=== PATIENT | male | born 1955 | race Caucasian/White ===

== ENCOUNTER 2017-12-14 11:52 | Inpatient (IN) | payer MEDICARE ==
[~2017-12-14] VITALS: Ht 180.3 cm; Wt 132.7 kg
[~2017-12-14 11:52] MED LIST: ALPR0.5T8 PO; APIX5TAB PO; ASEN5TAB8 SL; DULO60CA63 PO; FLUT16H NASAL; FURO20TA6 PO; HYDR8TAB18 PO; METO25TA6 PO; MONT10TA24 PO; TAMS0.4C32 PO; TOPI100T37 PO; ZOLP5TAB8 PO
[2017-12-14 12:17] LABS: BASOPHILS % (AUTO) 0.9 % (0.0-5.0); EOSINOPHILS % (AUTO) 2.3 % (0.0-8.0); HEMATOCRIT 37.7 % (42-54); LYMPHOCYTES % (AUTO) 21.4 % (21.0-51.0); MEAN CORPUSCULAR HEMOGLOBIN 31.6 pg (27.0-33.0); MEAN CORPUSCULAR VOLUME 92.9 fL (79-99); MONOCYTES % (AUTO) 8.4 % (3.0-13.0); NUCLEATED RED BLOOD CELLS 0.1 % (0.0-0.19); PLATELET COUNT (AUTO) 300 K/uL (130-400); RED BLOOD CELL COUNT(AUTO) 4.06 MIL/uL (4.50-6.20); RED CELL DISTRIBUTION WIDTH 12.7 % (11.0-15.5)
[2017-12-14 12:36] LABS: POTASSIUM 4.2 mmol/L (3.5-5.1)
[2017-12-14 12:43] LABS: ALBUMIN 3.6 g/dL (3.5-5.0); BILIRUBIN,TOTAL 0.4 mg/dL (0.2-1.0); TOTAL PROTEIN, SERUM 7.6 g/dL (6.0-8.3)
[2017-12-14 13:08] LABS: INR 0.89 (0.85-1.15); PARTIAL THROMBOPLASTIN TIME 25.7 SEC (26.3-35.5); PROTHROMBIN TIME 9.4 SEC (9.6-11.6)
[2017-12-14] MEDS ORDERED: ALPRAZOLAM 0.5 MG TABLET PO PRN (15:30)
[2017-12-14] MEDS ORDERED: HYDROMORPHONE HCL 2 MG TAB PO PRN (15:30)
[2017-12-14] MEDS ORDERED: FLUTICASONE PROPIONATE 50MCG/SPRAY 16 GM BOTTLE EN PRN (15:45)
[2017-12-14] MEDS ORDERED: LACTULOSE 20 GM/30 ML UDCUP PO PRN (15:45)
[2017-12-14] MEDS ORDERED: CYCLOBENZAPRINE HCL 10 MG TABLET PO PRN (15:45)
[2017-12-14 17:07] VITALS: BP 110/61
[2017-12-14 19:45] VITALS: BP 114/83
[2017-12-14 20:30] VITALS: BP_SYST 100; BP_SYST 125; BP_SYST 133; BP_DIAS 63; BP_DIAS 75; BP_DIAS 78
[2017-12-14] MEDS ORDERED: MONTELUKAST SODIUM 10 MG TAB PO SCH (21:00)
[2017-12-14] MEDS: DULOXETINE HCL 30 MG CAP PO SCH (21:30)
[2017-12-14] MEDS: TOPIRAMATE 100 MG TAB PO SCH (22:41)
[2017-12-14 23:27] VITALS: BP 126/76
[2017-12-15 04:16] VITALS: BP 124/75
[2017-12-15 04:47] LABS: HEMATOCRIT 35.5 % (42-54); MEAN CORPUSCULAR HEMOGLOBIN 32.3 pg (27.0-33.0); MEAN CORPUSCULAR HGB CONC 34.9 g/dL (32.0-36.0); MEAN CORPUSCULAR VOLUME 92.5 fL (79-99); NUCLEATED RED BLOOD CELLS 0.1 % (0.0-0.19); PLATELET COUNT (AUTO) 305 K/uL (130-400); RED BLOOD CELL COUNT(AUTO) 3.83 MIL/uL (4.50-6.20); RED CELL DISTRIBUTION WIDTH 12.6 % (11.0-15.5); WHITE BLOOD COUNT (AUTO) 7.9 K/uL (4.8-10.8)
[2017-12-15 05:01] LABS: ALBUMIN 3.2 g/dL (3.5-5.0); BILIRUBIN,TOTAL 0.4 mg/dL (0.2-1.0); CREATININE 0.8 mg/dL (0.5-1.5); POTASSIUM 4.4 mmol/L (3.5-5.1); TOTAL PROTEIN, SERUM 6.7 g/dL (6.0-8.3)
[2017-12-15] MEDS ORDERED: CYTOMEL PO SCH (06:30)
[2017-12-15 08:00] VITALS: BP 121/70
[2017-12-15] MEDS ORDERED: ENALAPRIL MALEATE 10 MG TABLET PO SCH (09:00)
[2017-12-15] MEDS ORDERED: TAMSULOSIN HCL 0.4 MG CAP.ER.24H PO SCH (09:00)
[2017-12-15] MEDS ORDERED: FE FUMARATE/FA/MV, MIN COMB#15 1 TAB PO SCH (09:00)
[2017-12-15] MEDS ORDERED: TESTOSTERONE CYPIONATE 200 MG/ML PO SCH (09:00)
[2017-12-15] MEDS: TOPIRAMATE 100 MG TAB PO SCH (10:36)
[2017-12-15] MEDS: DULOXETINE HCL 30 MG CAP PO SCH (10:37)
[2017-12-15 12:00] VITALS: BP 158/90
== END 2017-12-15 14:16 | disposition home or self-care (01) | DRG 312 ==
LOC: EDH 11:52 → EDHIP 14:07 → 4BH 16:31
PROVIDERS: ADMIT Internal Medicine; ATTEND Internal Medicine
DX: I95.1 Orthostatic hypotension (principal); E66.01 Morbid (severe) obesity due to excess calories; I48.3 Typical atrial flutter; Z68.41 Body mass index [BMI] 40.0-44.9, adult; F31.9 Bipolar disorder, unspecified; G47.33 Obstructive sleep apnea (adult) (pediatric); I10 Essential (primary) hypertension; Z98.84 Bariatric surgery status
CPT/HCPCS: 36415; 71045; 80053; 82550; 83880; 84484; 85025; 85027; 85610; 85730; 93005

== ENCOUNTER 2019-12-01 08:52 | Observation (INO) | payer MEDICARE ==
[2019-11-27 09:57] VITALS: BP 143/86
[2019-11-27 14:58] VITALS: BP 143/86
[2019-11-27 15:00] LABS: BASOPHILS % (AUTO) 0.7 % (0.0-5.0); EOSINOPHILS % (AUTO) 1.2 % (0.0-8.0); HEMATOCRIT 48.6 % (42-54); LYMPHOCYTES % (AUTO) 30.1 % (21.0-51.0); MEAN CORPUSCULAR HEMOGLOBIN 29.7 pg (27.0-33.0); MEAN CORPUSCULAR HGB CONC 31.7 g/dL (32.0-36.0); MEAN CORPUSCULAR VOLUME 93.6 fL (79-99); MONOCYTES % (AUTO) 9.3 % (3.0-13.0); NEUTROPHILS % (AUTO) 58.4 % (40.0-77.0); PLATELET COUNT (AUTO) 254 K/uL (130-400); RED BLOOD CELL COUNT(AUTO) 5.19 MIL/uL (4.50-6.20); RED CELL DISTRIBUTION WIDTH 13.2 % (11.0-15.5); WHITE BLOOD COUNT (AUTO) 7.7 K/uL (4.8-10.8)
[2019-11-27 15:14] LABS: INR 0.92 (0.85-1.15); PARTIAL THROMBOPLASTIN TIME 29.5 SEC (26.3-35.5)
[2019-11-27 15:16] LABS: ALBUMIN 3.7 g/dL (3.5-5.0); BILIRUBIN,TOTAL 0.6 mg/dL (0.2-1.0); POTASSIUM 3.8 mmol/L (3.5-5.1); TOTAL PROTEIN, SERUM 7.9 g/dL (6.0-8.3)
[2019-11-28] MEDS: CEFAZOLIN SODIUM 1 GM VIAL IVP SCH (08:00)
[2019-11-29] MEDS: CEFAZOLIN SODIUM 1 GM VIAL IVP SCH (08:00)
[2019-12-01] VITALS (15 sets, daily range): BP systolic 118–154; BP diastolic 53–97
[~2019-12-01] VITALS: Ht 177.8 cm; Wt 141.7 kg
[~2019-12-01 08:52] MED LIST changes: +ANAS1TAB49 PO; -APIX5TAB PO; -ASEN5TAB8 SL; -DULO60CA63 PO; -FLUT16H NASAL; -FURO20TA6 PO; +LACT10SO32 PO; +LAMO100T16 PO; +LIOT5TAB11 PO; -METO25TA6 PO; -MONT10TA24 PO; +MONT10TA26 PO; +NALO25TA PO; +SODIUM CHLORIDE 0.9% 1000ML 1,000 ML IV SCH; +TESTOSTERONE IJ; +ZOLP5TAB2 PO; -ZOLP5TAB8 PO
--- NOTE | 2019-12-01 09:10 | NUR ---
pre op pt here for rt breast mastectomy. pt has a quarter size lump to rt breast with swelling to rt axilla.
[2019-12-01] MEDS ORDERED: LACTATED RINGERS 1000ML 1,000 ML IV ONE (09:12)
[2019-12-01] MEDS ORDERED: LIDOCAINE PF 2% 5ML ABBOJECT ONE (10:58)
[2019-12-01] MEDS ORDERED: GLYCOPYRROLATE 1 MG/5 ML SYRINGE ONE (10:59)
[2019-12-01] MEDS ORDERED: ONDANSETRON HCL 4 MG/2 ML VIAL ONE ×2 (10:59→11:06)
[2019-12-01] MEDS ORDERED: DEXAMETHASONE SOD PHOSPHATE 10MG/ML 1ML VIAL ONE (10:59)
[2019-12-01] MEDS ORDERED: NEOSTIGMINE 5MG/5ML SYR IV ONE (10:59)
[2019-12-01] MEDS ORDERED: PROPOFOL 10 MG/ML 20ML VIAL IV ONE (10:59)
[2019-12-01] MEDS ORDERED: FENTANYL CITRATE PF 50 MCG/1 ML 2ML VIAL ONE (11:00)
[2019-12-01] MEDS ORDERED: ROCURONIUM 10MG/1ML SYR 10 MG/ML ML ONE (11:00)
[2019-12-01] MEDS ORDERED: MIDAZOLAM HCL 1 MG/ML 2ML VIAL ONE (11:00)
[2019-12-01] MEDS ORDERED: KETAMINE 50MG/ML SYRINGE 50 MG/ML DISP.SYRIN IV ONE (11:42)
[2019-12-01] MEDS ORDERED: FENTANYL CITRATE PF 50 MCG/1 ML 5ML AMP IV ONE (12:34)
[2019-12-01] MEDS ORDERED: BUPIVACAINE/PF 0.5% 30ML VIAL ONE (13:10)
[2019-12-01] MEDS ORDERED: MEPERIDINE-PF 25 MG/ML SYG ONE (14:20)
[2019-12-01] MEDS: CEFAZOLIN SODIUM 1 GM VIAL IVP SCH (14:29)
[2019-12-01] MEDS ORDERED: MEPERIDINE-PF 50 MG/ML SYG ONE (14:44)
[2019-12-01] MEDS ORDERED: HYDROMORPHONE HCL 8 MG PO PRN (16:15)
[2019-12-01] MEDS ORDERED: PHARMACY COMMUNICATION MISC SCH (16:45)
--- NOTE | 2019-12-01 16:50 | NUR ---
INITIAL Met with patient s/p mastectomy- order for HH for dressing changes. Patient lives with spouse, uses a cance, drives, is indpendent, home safe and accesible, has a shower chair and hand held shower. Spouse rashmi Laboy at [phone] to provide transport home and care during revoery. DONALD explained HH, rec'd erbal [facility] for [facility] in [facility] d[facility] will try [facility], vebaliZed understanding, will follow up in am. Addendum: 12/02/19 at 5158 by TIGIST RAMOS RN CM Amended: Links added.
[2019-12-01] MEDS: HYDROMORPHONE 1 MG/1 ML AMP IVP PRN ×2 (17:12→21:21)
[2019-12-01] MEDS ORDERED: ZOLPIDEM TARTRATE 5 MG TAB PO SCH (21:00)
[2019-12-01] MEDS ORDERED: TAMSULOSIN HCL 0.4 MG CAP.ER.24H PO SCH (21:00)
[2019-12-01] MEDS: ALPRAZOLAM 0.5 MG TABLET PO SCH (21:00)
[2019-12-01] MEDS: LACTULOSE 20 GM/30 ML UDCUP PO SCH (21:20)
[2019-12-01] MEDS: TOPIRAMATE 100 MG TAB PO SCH (21:20)
[2019-12-02] MEDS: HYDROMORPHONE 1 MG/1 ML AMP IVP PRN ×3 (01:58→10:46)
[2019-12-02 04:00] VITALS: BP 122/70
[2019-12-02 05:58] LABS: HEMATOCRIT 42.2 % (42-54); MEAN CORPUSCULAR HEMOGLOBIN 29.3 pg (27.0-33.0); MEAN CORPUSCULAR HGB CONC 31.5 g/dL (32.0-36.0); PLATELET COUNT (AUTO) 248 K/uL (130-400); RED BLOOD CELL COUNT(AUTO) 4.54 MIL/uL (4.50-6.20); RED CELL DISTRIBUTION WIDTH 13.3 % (11.0-15.5); WHITE BLOOD COUNT (AUTO) 7.9 K/uL (4.8-10.8)
[2019-12-02 06:18] LABS: POTASSIUM 3.8 mmol/L (3.5-5.1)
[2019-12-02 08:00] VITALS: BP 112/75
[2019-12-02] MEDS ORDERED: HYDROMORPHONE HCL 2 MG TAB PO PRN (08:15)
[2019-12-02] MEDS ORDERED: MONTELUKAST SODIUM 10 MG TAB PO SCH (09:00)
[2019-12-02] MEDS: LACTULOSE 20 GM/30 ML UDCUP PO SCH ×2 (09:00→14:00)
[2019-12-02] MEDS ORDERED: Liothyronine Sodium 5 MCG PO SCH (09:00)
[2019-12-02] MEDS ORDERED: LAMOTRIGINE 100 MG TABLET PO SCH (09:00)
[2019-12-02] MEDS: ALPRAZOLAM 0.5 MG TABLET PO SCH ×2 (09:28→14:10)
[2019-12-02] MEDS: TOPIRAMATE 100 MG TAB PO SCH (09:28)
[2019-12-02 11:44] VITALS: BP 122/71
--- NOTE | 2019-12-02 13:41 | NUR ---
BARRIERS TO DISCHARGE REFERRAL SENT TO [facility]- CALL BACK RECD THAT THEY ARE NOT IN NETWORK, BUT ON THE LIST, [facility] IS; REFERRAL SENT TO [facility],CALL BACK, NOT IN NETWORK, REFERRAL SENT TO [facility] AT 1129, CALLED AT 1330, SPOKE TO JENELLE, STATES NOT WORKING ON REFERRAL YET, WILL CALL BACK WITH BENEFITS. ARTEMIO PARKER ADVISED. WILL UPDATE PATIENT WHEN HOME HEALTH IS FINALIZED Addendum: 12/02/19 at 1348 by TIGIST RAMOS RN CM Amended: Links added.
--- NOTE | 2019-12-02 14:40 | NUR ---
[facility] ACCEPTED PATIENT 'RN ADVISED, PATIENT ADVISED
--- NOTE | 2019-12-02 15:09 | NUR ---
COMPLETE REPORT GIVEN TO JENELLE WITH [facility]
--- NOTE | 2019-12-02 15:17 | NUR ---
DISCHARGE INSTRUCTIONS GIVEN TO PATIENT, MADE AWARE OF FOLLOW UP APPOINTMENT WITH DR. CREWS, NO NEW RX, PATIENT C/O CHRONIC BACK PAIN 04/29 AND PAIN TO RIGHT BREAST. MEDICATED WITH PRN PO DILAUDID. PATIENT DOES TAKE THIS A HOME MED AND IS GOING STRAIGHT TO PAIN DOCTOR FROM HERE HAS APPOINTMENT AT 3:30, WAITING DOWNSTAIRS. PATIENT AT THIS TIME IS AAOX3, DRESSING CHANGED TO RIGHT BREAST, NO S+S OF INFECTION NOTED TO SITE. ALBERT DRAIN X 2 INTACT, EDUCATED ON HOW TO DRAIN ALBERT. AWARE OF HOME HEALTH PROVIDING DRESSING CHANGES. IV REMOVED. PATIENT WILL BE TAKEN HOME BY
[2019-12-05] MEDS ORDERED: ANASTROZOLE PO SCH (09:00)
== END 2019-12-02 15:10 | disposition home health service (06) ==
LOC: DAH 08:52 → 3AH 08:53 → DAH 08:53
PROVIDERS: ADMIT Student in an Organized Health Care Education/Training Program; ATTEND Student in an Organized Health Care Education/Training Program
DX: C50.929 Malignant neoplasm of unspecified site of unspecified male breast (principal)
CPT/HCPCS: 19307; 36415 ×2; 71045; 80048; 80053; 85025; 85027; 85610; 85730; 93005; 96374; 96376 ×2; A4213; A4215; A4221; A4222; A4223; A4600; A4663; A6446; G0378 ×17; J0690; J1100; J1170 ×5; J2001; J2175 ×2; J2250; J2405 ×2; J2704; J2710; J3010 ×2; J3490 ×3; J7030; J7120

== ENCOUNTER → 2020-01-20 | Outpatient (CLI) | payer MEDICARE | END | disposition home or self-care (01) | LOC: RAH 08:38 | PROVIDERS: ATTEND Internal Medicine Hematology & Oncology | DX: I08.3 Combined rheumatic disorders of mitral, aortic and tricuspid valves (principal); R00.2 Palpitations; C50.121 Malignant neoplasm of central portion of right male breast ==

== ENCOUNTER 2020-01-21 05:41 | Day surgery (SDC) | payer MEDICARE ==
[2020-01-20 13:35] LABS: BASOPHILS % (AUTO) 0.9 % (0.0-5.0); EOSINOPHILS % (AUTO) 1.7 % (0.0-8.0); HEMATOCRIT 46.1 % (42-54); LYMPHOCYTES % (AUTO) 33.8 % (21.0-51.0); MEAN CORPUSCULAR HEMOGLOBIN 29.3 pg (27.0-33.0); MEAN CORPUSCULAR HGB CONC 31.2 g/dL (32.0-36.0); MEAN CORPUSCULAR VOLUME 93.9 fL (79-99); MONOCYTES % (AUTO) 10.2 % (3.0-13.0); PLATELET COUNT (AUTO) 280 K/uL (130-400); RED BLOOD CELL COUNT(AUTO) 4.91 MIL/uL (4.50-6.20); RED CELL DISTRIBUTION WIDTH 13.5 % (11.0-15.5)
[2020-01-20 13:45] LABS: CREATININE 1.1 mg/dL (0.5-1.5); POTASSIUM 4.5 mmol/L (3.5-5.1)
[2020-01-20 14:07] VITALS: BP 143/75
[~2020-01-21] VITALS: Ht 177.8 cm; Wt 147.5 kg
[2020-01-21] VITALS (12 sets, daily range): BP systolic 113–131; BP diastolic 65–82
[~2020-01-21 05:41] MED LIST changes: -NALO25TA PO; -SODIUM CHLORIDE 0.9% 1000ML 1,000 ML IV SCH
[2020-01-21] MEDS: CEFAZOLIN SODIUM 1 GM VIAL IVP SCH ×2 (06:00→08:15)
--- NOTE | 2020-01-21 06:44 | NUR ---
potential for infection: clipped entire chest per pat villeda
[2020-01-21] MEDS ORDERED: LACTATED RINGERS 1000ML 1,000 ML IV ONE (06:58)
[2020-01-21] MEDS ORDERED: LIDOCAINE PF 2% 5ML ABBOJECT ONE (07:13)
[2020-01-21] MEDS ORDERED: SUCCINYLCHOLINE CHLORIDE 20 MG/ML 10 ML VIAL ONE (07:13)
[2020-01-21] MEDS ORDERED: PROPOFOL 10 MG/ML 20ML VIAL IV ONE (07:14)
[2020-01-21] MEDS ORDERED: FENTANYL CITRATE PF 50 MCG/1 ML 2ML VIAL ONE (07:14)
[2020-01-21] MEDS ORDERED: MIDAZOLAM HCL 1 MG/ML 2ML VIAL ONE (07:14)
[2020-01-21] MEDS ORDERED: LIDOCAINE HCL 1% 20 ML VIAL ONE (08:04)
[2020-01-21] MEDS ORDERED: BUPIVACAINE/PF 0.5% 30ML VIAL ONE (08:04)
--- NOTE | 2020-01-21 10:06 | NUR ---
CALLED AND GIVEN POST PROCEDURE DISCHARGE INSTRUCTIONS- VERBALIZES UNDERSTANDING
--- NOTE | 2020-01-21 10:30 | NUR ---
DR AMEZCUA WAS NOTIFIED WITH CXR RESULTS- DISCHARGED HOME
[2020-01-21] MEDS ORDERED: SODIUM CHLORIDE 0.9% 1000ML 1,000 ML IV SCH (11:30)
== END 2020-01-21 10:30 | disposition home or self-care (01) ==
LOC: DAH 05:41
PROVIDERS: ATTEND Student in an Organized Health Care Education/Training Program
DX: Z45.2 Encounter for adjustment and management of vascular access device (principal); C50.121 Malignant neoplasm of central portion of right male breast; E66.01 Morbid (severe) obesity due to excess calories; F41.9 Anxiety disorder, unspecified; F31.9 Bipolar disorder, unspecified; Z96.653 Presence of artificial knee joint, bilateral; Z98.890 Other specified postprocedural states; Z79.899 Other long term (current) drug therapy; Z98.84 Bariatric surgery status; Z68.43 Body mass index [BMI] 50.0-59.9, adult
CPT/HCPCS: 36415; 36561; 71045; 77001; 80048; 85025; 93005; A4213; A4215; A4221; A4222; A4223; A4600; A4606; A4649; A4663; A4930; A6207; A6260; C1769; C1788; G0168; J0330; J0690 ×2; J1644; J2001; J2250; J2704; J3010; J3490; J7030; J7120; U0003; 76000

== ENCOUNTER 2020-07-07 13:54 | Inpatient (IN) | payer MEDICARE ==
[~2020-07-07] VITALS: Ht 180.3 cm; Wt 107.0 kg
[~2020-07-07 13:54] MED LIST changes: -MONT10TA26 PO; +MONT10TA96 PO
[2020-07-07] MEDS ORDERED: SODIUM CHLORIDE 0.9% 1000ML 1,000 ML IV ONE (14:07)
[2020-07-07] MEDS ORDERED: ACETAMINOPHEN 325 MG TAB PO PRN (14:15)
[2020-07-07] MEDS ORDERED: GUAIFENESIN-DM 200/20 MG 10 ML PO PRN (14:15)
[2020-07-07 15:29] LABS: BASOPHILS % (AUTO) 0.2 % (0.0-5.0); EOSINOPHILS % (AUTO) 0.3 % (0.0-8.0); HEMATOCRIT 39.5 % (42-54); LYMPHOCYTES % (AUTO) 8.2 % (21.0-51.0); MEAN CORPUSCULAR HEMOGLOBIN 31.1 pg (27.0-33.0); MEAN CORPUSCULAR HGB CONC 32.9 g/dL (32.0-36.0); MEAN CORPUSCULAR VOLUME 94.5 fL (79-99); MONOCYTES % (AUTO) 6.9 % (3.0-13.0); NEUTROPHILS % (AUTO) 83.5 % (40.0-77.0); NUCLEATED RED BLOOD CELLS 0.1 % (0.0-0.19); PLATELET COUNT (AUTO) 499 K/uL (130-400); RED BLOOD CELL COUNT(AUTO) 4.18 MIL/uL (4.50-6.20); RED CELL DISTRIBUTION WIDTH 18.6 % (11.0-15.5); WHITE BLOOD COUNT (AUTO) 24.4 K/uL (4.8-10.8)
[2020-07-07 15:42] LABS: ALBUMIN 2.8 g/dL (3.5-5.0); BILIRUBIN,TOTAL 0.5 mg/dL (0.2-1.0); CREATININE 1.8 mg/dL (0.5-1.5); POTASSIUM 3.8 mmol/L (3.5-5.1); TOTAL PROTEIN, SERUM 9.3 g/dL (6.0-8.3)
[2020-07-07 15:49] LABS: PARTIAL THROMBOPLASTIN TIME 27.8 SEC (26.3-35.5); PROTHROMBIN TIME 10.8 SEC (9.6-11.6)
[2020-07-07] MEDS ORDERED: IPRATROPIUM/ALBUTEROL SULFATE 3 ML SOLUTION IH ONE (18:28)
[2020-07-07] MEDS: IPRATROPIUM/ALBUTEROL SULFATE 3 ML SOLUTION IH SCH (18:47)
[2020-07-07] MEDS ORDERED: VANCOMYCIN PROTOCOL PER PHARMACY IV SCH (19:45)
[2020-07-07] MEDS ORDERED: METOPROLOL TARTRATE 1 MG/ML 5ML VIAL IV PRN (19:45)
[2020-07-07] MEDS ORDERED: VANCOMYCIN 1GM+NS 250ML 250 ML IV SCH (19:45)
[2020-07-07] MEDS ORDERED: VANCOMYCIN 2 GM in SODIUM CHLORIDE 0.9% 500ML 500 ML IV ONE (20:00)
[2020-07-07] MEDS ORDERED: FAMOTIDINE/PF 20 MG/2 ML VIAL IV ONE (20:03)
[2020-07-07 20:06] VITALS: BP 106/41
[2020-07-07] MEDS: SODIUM CHLORIDE 0.9% 1000ML 1,000 ML IV SCH (20:45)
[2020-07-07] MEDS: BENZONATATE 100 MG CAPSULE PO SCH (20:47)
[2020-07-07] MEDS: ZOSYN 3.375GM+NS 50ML 50 ML IV SCH (20:54)
[2020-07-07 21:35] LABS: ABG BASE EXCESS 5.9 mmol/L (-2.0-3.0); ABG HCO3 30.6 mmol/L (21.0-28.0); ABG OXYGEN SATURATION 99.2 % (95.0-99.0); ABG PCO2 44 mmHg (35-48)
[2020-07-07 23:58] VITALS: BP 116/80
[2020-07-08] MEDS: IPRATROPIUM/ALBUTEROL SULFATE 3 ML SOLUTION IH SCH ×2 (00:13→06:00)
[2020-07-08] MEDS: ACETYLCYSTEINE 10% 100MG/ML 4ML VIAL PO SCH ×2 (00:13→02:00)
[2020-07-08] MEDS: SODIUM CHLORIDE 0.9% 1000ML 1,000 ML IV SCH ×2 (00:15→09:12)
[2020-07-08 03:40] VITALS: BP 123/75
[2020-07-08 05:58] LABS: BASOPHILS % (AUTO) 0.2 % (0.0-5.0); EOSINOPHILS % (AUTO) 0.3 % (0.0-8.0); LYMPHOCYTES % (AUTO) 9.7 % (21.0-51.0); MEAN CORPUSCULAR HEMOGLOBIN 31.5 pg (27.0-33.0); MEAN CORPUSCULAR HGB CONC 32.1 g/dL (32.0-36.0); MEAN CORPUSCULAR VOLUME 97.9 fL (79-99); MONOCYTES % (AUTO) 10.1 % (3.0-13.0); NEUTROPHILS % (AUTO) 78.2 % (40.0-77.0); NUCLEATED RED BLOOD CELLS 0.1 % (0.0-0.19); PLATELET COUNT (AUTO) 397 K/uL (130-400); RED BLOOD CELL COUNT(AUTO) 3.37 MIL/uL (4.50-6.20); RED CELL DISTRIBUTION WIDTH 18.5 % (11.0-15.5); WHITE BLOOD COUNT (AUTO) 23.4 K/uL (4.8-10.8)
[2020-07-08 06:19] LABS: CREATININE 1.4 mg/dL (0.5-1.5); MAGNESIUM 1.8 mg/dL (1.80-2.40); POTASSIUM 3.6 mmol/L (3.5-5.1)
[2020-07-08] MEDS: ZOSYN 3.375GM+NS 50ML 50 ML IV SCH ×3 (06:48→22:15)
[2020-07-08 07:30] VITALS: BP 102/65
[2020-07-08] MEDS: FAMOTIDINE/PF 20 MG/2 ML VIAL IV SCH (09:51)
[2020-07-08] MEDS: VANCOMYCIN 500MG+NS 100ML 100 ML IV SCH ×2 (09:51→22:14)
[2020-07-08] MEDS: BENZONATATE 100 MG CAPSULE PO SCH ×3 (09:51→22:14)
[2020-07-08 11:36] VITALS: BP 114/72
[2020-07-08] MEDS ORDERED: ACETYLCYSTEINE 10% 100MG/ML 4ML VIAL IH SCH (12:00)
[2020-07-08 12:39] LABS: APPEARANCE,URINE Clear (CLEAR); BILIRUBIN,URINE Negative (NEGATIVE); COLOR,URINE Dark Yellow (YELLOW); GLUCOSE, URINE (UA) Negative (NEGATIVE); KETONES,URINE 15 mg/dL (NEGATIVE); LEUKOCYTE ESTERASE ,URINE Negative (NEGATIVE); NITRATE,URINE Negative (NEGATIVE); OCCULT BLOOD,URINE Negative (NEGATIVE); PROTEIN,URINE Trace mg/dL (NEGATIVE)
[2020-07-08 12:59] LABS: BACTERIA,URINE Rare /HPF (None Seen); RBC,URINE 0-1 /HPF (0-1); SQUAMOUS EPITHELIAL CELL,UR Rare /HPF (0-2); WBC,URINE 0-1 /HPF (0-1)
[2020-07-08 16:05] VITALS: BP 116/68
[2020-07-08] MEDS ORDERED: LACTULOSE 20 GM/30 ML UDCUP ONE (18:13)
[2020-07-08] MEDS: ALBUTEROL INHALER 90MCG/INH IH SCH (18:15)
[2020-07-08 19:39] VITALS: BP 110/80
[2020-07-08 23:58] VITALS: BP 128/67
[2020-07-09] VITALS (27 sets, daily range): BP systolic 106–144; BP diastolic 56–91
[2020-07-09 08:12] LABS: HEMATOCRIT 32.4 % (42-54); MEAN CORPUSCULAR HEMOGLOBIN 31.6 pg (27.0-33.0); MEAN CORPUSCULAR HGB CONC 32.7 g/dL (32.0-36.0); MEAN CORPUSCULAR VOLUME 96.7 fL (79-99); RED BLOOD CELL COUNT(AUTO) 3.35 MIL/uL (4.50-6.20); RED CELL DISTRIBUTION WIDTH 18.6 % (11.0-15.5); WHITE BLOOD COUNT (AUTO) 16.6 K/uL (4.8-10.8)
[2020-07-09 08:25] LABS: CREATININE 0.8 mg/dL (0.5-1.5); POTASSIUM 3.7 mmol/L (3.5-5.1)
[2020-07-09 08:29] LABS: INR 0.99 (0.85-1.15); PARTIAL THROMBOPLASTIN TIME 24.9 SEC (26.3-35.5); PROTHROMBIN TIME 10.7 SEC (9.6-11.6)
[2020-07-09] MEDS: BENZONATATE 100 MG CAPSULE PO SCH ×2 (09:00→20:11)
[2020-07-09] MEDS: VANCOMYCIN 500MG+NS 100ML 100 ML IV SCH (09:00)
[2020-07-09] MEDS: FAMOTIDINE/PF 20 MG/2 ML VIAL IV SCH (10:20)
[2020-07-09] MEDS ORDERED: VANCOMYCIN 2 GM in SODIUM CHLORIDE 0.9% 500ML 500 ML IV SCH (10:45)
[2020-07-09] MEDS ORDERED: METOPROLOL TARTRATE 1 MG/ML 5ML VIAL IV ONE (11:43)
[2020-07-09] MEDS: ZOSYN 3.375GM+NS 50ML 50 ML IV SCH ×3 (14:00→21:52)
[2020-07-09] MEDS ORDERED: MIDAZOLAM HCL 1 MG/ML 2ML VIAL ONE (14:09)
[2020-07-09] MEDS ORDERED: FENTANYL CITRATE PF 50 MCG/1 ML 2ML VIAL ONE (14:09)
[2020-07-09] MEDS ORDERED: IOHEXOL-350 75 ML VIAL IV ONE (14:47)
[2020-07-09] MEDS ORDERED: HEPARIN 25000 UNITS/250 ML D5W 250 ML IV SCH (16:30)
[2020-07-09] MEDS: METOPROLOL TARTRATE 1 MG/ML 5ML VIAL IV SCH ×2 (17:45→23:31)
[2020-07-09] MEDS: HYDROMORPHONE HCL 0.5 MG/0.5 ML ML IVP PRN (18:15)
[2020-07-09] MEDS: IPRATROPIUM 0.5 MG/2.5 ML INH IH SCH (19:16)
[2020-07-09] MEDS: HEPARIN 25000 UNITS/250 ML D5W 250 ML IV SCH (20:29)
[2020-07-09] MEDS ORDERED: ALPRAZOLAM 0.5 MG TABLET PO PRN (20:45)
[2020-07-09 21:18] LABS: AMYLASE,BODY FLUID 23 U/L
[2020-07-09 21:40] LABS: APPEARANCE BODY FLUID TURBID (CLEAR); SPECIMENTYPE,BODY FLUID PLEURAL
[2020-07-09 21:41] LABS: BODY FLUID WBC 114500 /cu. mm.; COLOR,BODY FLUID OTHER (LT YELLOW); TOTAL VOLUME,BODY FLUID 8 mL
[2020-07-09 21:42] LABS: BODY FLUID RBC 10750 /cu. mm.
[2020-07-09] MEDS: ZOLPIDEM TARTRATE 5 MG TAB PO SCH (21:52)
[2020-07-09] MEDS: HYDROMORPHONE 1 MG/1 ML AMP IVP PRN (21:52)
[2020-07-09] MEDS: VANCOMYCIN 1GM+NS 250ML 250 ML IV SCH (21:52)
[2020-07-09] MEDS: SODIUM CHLORIDE 0.9% 1000ML 1,000 ML IV SCH (21:53)
[2020-07-09 21:54] LABS: BF LYMPHOCYTE 12 %
[2020-07-10] VITALS (79 sets, daily range): BP systolic 118–167; BP diastolic 66–117
[2020-07-10] MEDS: IPRATROPIUM 0.5 MG/2.5 ML INH IH SCH ×3 (00:13→19:24)
[2020-07-10] MEDS: SODIUM CHLORIDE 0.9% 1000ML 1,000 ML IV SCH ×4 (00:52→22:15)
[2020-07-10 01:53] LABS: HEMATOCRIT 29.1 % (42-54); MEAN CORPUSCULAR HEMOGLOBIN 32.5 pg (27.0-33.0); MEAN CORPUSCULAR HGB CONC 33.7 g/dL (32.0-36.0); MEAN CORPUSCULAR VOLUME 96.4 fL (79-99); RED BLOOD CELL COUNT(AUTO) 3.02 MIL/uL (4.50-6.20); RED CELL DISTRIBUTION WIDTH 19.1 % (11.0-15.5); WHITE BLOOD COUNT (AUTO) 17.3 K/uL (4.8-10.8)
[2020-07-10 02:01] LABS: CREATININE 0.6 mg/dL (0.5-1.5)
[2020-07-10 02:04] LABS: POTASSIUM 2.4 mmol/L (3.5-5.1)
[2020-07-10 02:17] LABS: INR 1.13 (0.85-1.15); PROTHROMBIN TIME 12.1 SEC (9.6-11.6)
[2020-07-10 02:25] LABS: PARTIAL THROMBOPLASTIN TIME > 120.0 SEC (26.3-35.5)
[2020-07-10] MEDS: HEPARIN 25000 UNITS/250 ML D5W 250 ML IV SCH ×2 (03:32→21:10)
[2020-07-10] MEDS: HYDROMORPHONE 1 MG/1 ML AMP IVP PRN ×2 (03:39→21:14)
[2020-07-10] MEDS: ZOSYN 3.375GM+NS 50ML 50 ML IV SCH ×3 (06:46→21:49)
[2020-07-10] MEDS: METOPROLOL TARTRATE 1 MG/ML 5ML VIAL IV SCH ×3 (06:46→17:45)
[2020-07-10] MEDS: VANCOMYCIN 1GM+NS 250ML 250 ML IV SCH ×3 (06:46→21:08)
[2020-07-10] MEDS ORDERED: POTASSIUM CHLORIDE 20MEQ/100ML 100 ML IV PRN (07:00)
[2020-07-10] MEDS ORDERED: POTASSIUM CHLORIDE 20 MEQ ERTAB PO ONE (07:47)
[2020-07-10] MEDS ORDERED: POTASSIUM CHLORIDE 20MEQ/100ML 100 ML IV ONE (07:48)
[2020-07-10] MEDS ORDERED: MAGNESIUM 2GM PREMIX 50ML 50 ML IV ONE (07:49)
[2020-07-10 07:56] LABS: INR 1.03 (0.85-1.15); PARTIAL THROMBOPLASTIN TIME 33.3 SEC (26.3-35.5); PROTHROMBIN TIME 11.1 SEC (9.6-11.6)
[2020-07-10] MEDS: BENZONATATE 100 MG CAPSULE PO SCH ×3 (08:02→21:00)
[2020-07-10] MEDS: FAMOTIDINE/PF 20 MG/2 ML VIAL IV SCH (08:02)
[2020-07-10] MEDS: POTASSIUM CHLORIDE 20MEQ/100ML 100 ML IV PRN (10:56)
[2020-07-10] MEDS: MAGNESIUM 2GM PREMIX 50ML 50 ML IV PRN (10:56)
[2020-07-10] MEDS: HYDROMORPHONE HCL 0.5 MG/0.5 ML ML IVP PRN (15:00)
[2020-07-10] MEDS: DILTIAZEM HCL 125 MG/25 ML 125 MG in SODIUM CHLORIDE 0.9% 100 ML IV SCH (15:30)
[2020-07-10] MEDS ORDERED: ACETYLCYSTEINE 20% 200MG/ML 4ML VIAL PO SCH (16:30)
[2020-07-10] MEDS ORDERED: PHARMACY COMMUNICATION MISC SCH (19:15)
[2020-07-10 20:10] LABS: ALBUMIN 1.9 g/dL (3.5-5.0); BILIRUBIN,TOTAL 0.5 mg/dL (0.2-1.0); CREATININE 0.7 mg/dL (0.5-1.5); POTASSIUM 3.5 mmol/L (3.5-5.1); TOTAL PROTEIN, SERUM 6.8 g/dL (6.0-8.3)
[2020-07-10] MEDS: ZOLPIDEM TARTRATE 5 MG TAB PO SCH (21:08)
[2020-07-11] VITALS (25 sets, daily range): BP systolic 129–160; BP diastolic 63–105
[2020-07-11] MEDS: METOPROLOL TARTRATE 1 MG/ML 5ML VIAL IV SCH ×4 (00:08→17:21)
[2020-07-11] MEDS ORDERED: ACETYLCYSTEINE 20% 200MG/ML 4ML VIAL ONE (00:33)
[2020-07-11] MEDS: IPRATROPIUM 0.5 MG/2.5 ML INH IH SCH ×4 (00:35→18:44)
[2020-07-11] MEDS: DILTIAZEM HCL 125 MG/25 ML 125 MG in SODIUM CHLORIDE 0.9% 100 ML IV SCH ×2 (04:05→18:31)
[2020-07-11] MEDS: SODIUM CHLORIDE 0.9% 1000ML 1,000 ML IV SCH (04:12)
[2020-07-11] MEDS: ZOSYN 3.375GM+NS 50ML 50 ML IV SCH ×3 (05:46→22:23)
[2020-07-11 05:52] LABS: HEMATOCRIT 32.8 % (42-54); MEAN CORPUSCULAR HEMOGLOBIN 31.3 pg (27.0-33.0); MEAN CORPUSCULAR HGB CONC 32.6 g/dL (32.0-36.0); MEAN CORPUSCULAR VOLUME 95.9 fL (79-99); RED BLOOD CELL COUNT(AUTO) 3.42 MIL/uL (4.50-6.20); RED CELL DISTRIBUTION WIDTH 19.5 % (11.0-15.5); WHITE BLOOD COUNT (AUTO) 15.6 K/uL (4.8-10.8)
[2020-07-11] MEDS: VANCOMYCIN 1GM+NS 250ML 250 ML IV SCH (06:00)
[2020-07-11 06:26] LABS: CREATININE 0.7 mg/dL (0.5-1.5)
[2020-07-11] MEDS: ACETYLCYSTEINE 20% 200MG/ML 4ML VIAL IH SCH ×3 (06:27→18:44)
[2020-07-11 06:31] LABS: POTASSIUM 2.9 mmol/L (3.5-5.1)
[2020-07-11 06:32] LABS: INR 0.99 (0.85-1.15); PARTIAL THROMBOPLASTIN TIME 29.2 SEC (26.3-35.5); PROTHROMBIN TIME 10.7 SEC (9.6-11.6)
[2020-07-11] MEDS: POTASSIUM CHLORIDE 20MEQ/100ML 100 ML IV PRN ×2 (06:35→22:26)
[2020-07-11] MEDS: BENZONATATE 100 MG CAPSULE PO SCH ×3 (08:49→21:00)
[2020-07-11] MEDS: FAMOTIDINE/PF 20 MG/2 ML VIAL IV SCH (09:01)
[2020-07-11] MEDS: HYDROMORPHONE HCL 0.5 MG/0.5 ML ML IVP PRN ×2 (09:21→15:39)
[2020-07-11] MEDS ORDERED: ONDA8TAB12 PO (13:29)
[2020-07-11] MEDS ORDERED: POTA-79 PO (13:29)
[2020-07-11 15:31] LABS: INR 1.03 (0.85-1.15); PARTIAL THROMBOPLASTIN TIME 59.7 SEC (26.3-35.5); PROTHROMBIN TIME 11.1 SEC (9.6-11.6)
[2020-07-11] MEDS ORDERED: PHARMACY COMMUNICATION MISC SCH (20:00)
[2020-07-11] MEDS: ZOLPIDEM TARTRATE 5 MG TAB PO SCH (20:57)
[2020-07-11] MEDS: HYDROMORPHONE 1 MG/1 ML AMP IVP PRN (21:02)
[2020-07-11] MEDS ORDERED: SODIUM CHLORIDE 0.9% 1000ML 1,000 ML IV ONE (21:14)
[2020-07-12] VITALS (34 sets, daily range): BP systolic 126–174; BP diastolic 61–96
[2020-07-12] MEDS: IPRATROPIUM 0.5 MG/2.5 ML INH IH SCH ×4 (00:05→18:06)
[2020-07-12] MEDS: ACETYLCYSTEINE 20% 200MG/ML 4ML VIAL IH SCH ×4 (00:05→18:06)
[2020-07-12] MEDS: METOPROLOL TARTRATE 1 MG/ML 5ML VIAL IV SCH ×4 (00:05→17:18)
[2020-07-12] MEDS: POTASSIUM CHLORIDE 20MEQ/100ML 100 ML IV PRN ×3 (00:19→20:05)
[2020-07-12 05:15] LABS: HEMATOCRIT 32.1 % (42-54); MEAN CORPUSCULAR HGB CONC 32.4 g/dL (32.0-36.0); MEAN CORPUSCULAR VOLUME 95.8 fL (79-99); RED BLOOD CELL COUNT(AUTO) 3.35 MIL/uL (4.50-6.20); RED CELL DISTRIBUTION WIDTH 19.6 % (11.0-15.5); WHITE BLOOD COUNT (AUTO) 12.1 K/uL (4.8-10.8)
[2020-07-12] MEDS: VANCOMYCIN 750MG + NS 250 ML IV SCH ×4 (05:25→14:12)
[2020-07-12] MEDS: ZOSYN 3.375GM+NS 50ML 50 ML IV SCH ×2 (05:26→14:11)
[2020-07-12 05:44] LABS: ALBUMIN 1.6 g/dL (3.5-5.0); BILIRUBIN,TOTAL 0.5 mg/dL (0.2-1.0); CREATININE 0.7 mg/dL (0.5-1.5); POTASSIUM 3.1 mmol/L (3.5-5.1); TOTAL PROTEIN, SERUM 6.4 g/dL (6.0-8.3)
[2020-07-12 05:45] LABS: INR 1.01 (0.85-1.15); PARTIAL THROMBOPLASTIN TIME 51.8 SEC (26.3-35.5); PROTHROMBIN TIME 10.9 SEC (9.6-11.6)
[2020-07-12] MEDS: HEPARIN 25000 UNITS/250 ML D5W 250 ML IV SCH ×2 (06:04→18:57)
[2020-07-12] MEDS: BENZONATATE 100 MG CAPSULE PO SCH ×3 (09:00→21:09)
[2020-07-12] MEDS: HYDROMORPHONE HCL 0.5 MG/0.5 ML ML IVP PRN (09:22)
[2020-07-12] MEDS: FAMOTIDINE/PF 20 MG/2 ML VIAL IV SCH (09:22)
[2020-07-12 11:48] LABS: MAGNESIUM 1.4 mg/dL (1.80-2.40); POTASSIUM 4.1 mmol/L (3.5-5.1)
[2020-07-12] MEDS: MAGNESIUM 2GM PREMIX 50ML 50 ML IV PRN ×2 (14:11→23:23)
[2020-07-12] MEDS: PHARMACY COMMUNICATION MISC SCH (16:00)
[2020-07-12] MEDS: HYDROMORPHONE 1 MG/1 ML AMP IVP PRN ×2 (16:11→21:11)
[2020-07-12] MEDS: CEFAZOLIN SODIUM 1 GM VIAL IVP SCH (17:21)
[2020-07-12 19:49] LABS: CREATININE 0.8 mg/dL (0.5-1.5); MAGNESIUM 1.5 mg/dL (1.80-2.40)
[2020-07-12 19:54] LABS: POTASSIUM 2.9 mmol/L (3.5-5.1)
[2020-07-12] MEDS: POTASSIUM CHLORIDE 10% ELIXIR 20 MEQ/15 ML UDCUP PO PRN (20:02)
[2020-07-12] MEDS: POTASSIUM CHLORIDE 20 MEQ ERTAB PO PRN (20:05)
[2020-07-12] MEDS ORDERED: METOPROLOL TARTRATE 25 MG TAB PO SCH (21:00)
[2020-07-12] MEDS: TAMSULOSIN HCL 0.4 MG CAP.ER.24H PO SCH (21:09)
[2020-07-12] MEDS: ZOLPIDEM TARTRATE 5 MG TAB PO SCH (21:09)
[2020-07-13] VITALS (31 sets, daily range): BP systolic 115–157; BP diastolic 57–104
[2020-07-13] MEDS: IPRATROPIUM 0.5 MG/2.5 ML INH IH SCH ×5 (00:13→23:40)
[2020-07-13] MEDS: ACETYLCYSTEINE 20% 200MG/ML 4ML VIAL IH SCH ×5 (00:14→23:40)
[2020-07-13 01:04] LABS: MAGNESIUM 2.2 mg/dL (1.80-2.40); POTASSIUM 3.4 mmol/L (3.5-5.1)
[2020-07-13] MEDS: CEFAZOLIN SODIUM 1 GM VIAL IVP SCH ×2 (03:03→17:24)
[2020-07-13] MEDS: POTASSIUM CHLORIDE 20 MEQ ERTAB PO PRN (03:03)
[2020-07-13] MEDS: PHARMACY COMMUNICATION MISC SCH ×2 (04:00→16:00)
[2020-07-13 04:45] LABS: ABG BASE EXCESS 4.4 mmol/L (-2.0-3.0); ABG HCO3 27.1 mmol/L (21.0-28.0); ABG OXYGEN SATURATION 96.2 % (95.0-99.0); ABG PCO2 35 mmHg (35-48)
[2020-07-13 06:40] LABS: HEMATOCRIT 31.5 % (42-54); MEAN CORPUSCULAR HEMOGLOBIN 31.4 pg (27.0-33.0); MEAN CORPUSCULAR HGB CONC 32.7 g/dL (32.0-36.0); RED BLOOD CELL COUNT(AUTO) 3.28 MIL/uL (4.50-6.20); RED CELL DISTRIBUTION WIDTH 19.9 % (11.0-15.5); WHITE BLOOD COUNT (AUTO) 12.9 K/uL (4.8-10.8)
[2020-07-13 06:52] LABS: CREATININE 0.8 mg/dL (0.5-1.5); POTASSIUM 4.1 mmol/L (3.5-5.1)
[2020-07-13 07:06] LABS: INR 1.01 (0.85-1.15); PROTHROMBIN TIME 10.9 SEC (9.6-11.6)
[2020-07-13] MEDS: LAMOTRIGINE 100 MG TABLET PO SCH (08:17)
[2020-07-13] MEDS: BENZONATATE 100 MG CAPSULE PO SCH ×3 (08:17→21:12)
[2020-07-13] MEDS: FAMOTIDINE/PF 20 MG/2 ML VIAL IV SCH (08:17)
[2020-07-13] MEDS: MONTELUKAST SODIUM 10 MG TAB PO SCH (08:20)
[2020-07-13] MEDS: METOPROLOL TARTRATE 25 MG TAB PO SCH ×2 (10:10→21:12)
[2020-07-13] MEDS: HYDROMORPHONE HCL 0.5 MG/0.5 ML ML IVP PRN ×2 (10:12→21:13)
[2020-07-13] MEDS: HYDROMORPHONE 1 MG/1 ML AMP IVP PRN (14:24)
[2020-07-13] MEDS: TAMSULOSIN HCL 0.4 MG CAP.ER.24H PO SCH (21:12)
[2020-07-13] MEDS: ZOLPIDEM TARTRATE 5 MG TAB PO SCH (21:12)
[2020-07-14] VITALS (25 sets, daily range): BP systolic 110–171; BP diastolic 61–92
[2020-07-14 04:19] LABS: HEMATOCRIT 29.3 % (42-54); MEAN CORPUSCULAR HEMOGLOBIN 31.6 pg (27.0-33.0); MEAN CORPUSCULAR HGB CONC 32.8 g/dL (32.0-36.0); MEAN CORPUSCULAR VOLUME 96.4 fL (79-99); RED BLOOD CELL COUNT(AUTO) 3.04 MIL/uL (4.50-6.20)
[2020-07-14] MEDS: CEFAZOLIN SODIUM 1 GM VIAL IVP SCH ×2 (04:22→16:29)
[2020-07-14 04:35] LABS: ALBUMIN 1.6 g/dL (3.5-5.0); BILIRUBIN,TOTAL 0.4 mg/dL (0.2-1.0); CREATININE 0.8 mg/dL (0.5-1.5); MAGNESIUM 1.1 mg/dL (1.80-2.40); PHOSPHORUS 3.5 mg/dL (2.5-4.9); POTASSIUM 3.5 mmol/L (3.5-5.1); TOTAL PROTEIN, SERUM 6.4 g/dL (6.0-8.3)
[2020-07-14 04:36] LABS: INR 1.01 (0.85-1.15); PARTIAL THROMBOPLASTIN TIME 73.5 SEC (26.3-35.5); PROTHROMBIN TIME 10.9 SEC (9.6-11.6)
[2020-07-14] MEDS ORDERED: SODIUM CHLORIDE 0.9% 500ML 500 ML IV ONE (05:06)
[2020-07-14] MEDS: POTASSIUM CHLORIDE 20 MEQ ERTAB PO PRN (05:27)
[2020-07-14] MEDS: MAGNESIUM 2GM PREMIX 50ML 50 ML IV PRN (05:27)
[2020-07-14] MEDS: IPRATROPIUM 0.5 MG/2.5 ML INH IH SCH ×3 (06:15→18:21)
[2020-07-14] MEDS: ACETYLCYSTEINE 20% 200MG/ML 4ML VIAL IH SCH ×3 (06:16→18:21)
[2020-07-14] MEDS ORDERED: PROPOFOL 10 MG/ML 20ML VIAL IV ONE ×2 (07:31→10:10)
[2020-07-14] MEDS ORDERED: SUCCINYLCHOLINE CHLORIDE 20 MG/ML 10 ML VIAL ONE (07:31)
[2020-07-14] MEDS ORDERED: GLYCOPYRROLATE 1 MG/5 ML SYRINGE ONE (07:31)
[2020-07-14] MEDS ORDERED: ONDANSETRON HCL 4 MG/2 ML VIAL ONE (07:31)
[2020-07-14] MEDS ORDERED: DEXAMETHASONE SOD PHOSPHATE 10MG/ML 1ML VIAL ONE (07:31)
[2020-07-14] MEDS ORDERED: LIDOCAINE PF 2% 5ML ABBOJECT ONE ×2 (07:31→07:33)
[2020-07-14] MEDS ORDERED: NEOSTIGMINE 5MG/5ML SYR IV ONE (07:32)
[2020-07-14] MEDS ORDERED: MIDAZOLAM HCL 1 MG/ML 2ML VIAL ONE (07:32)
[2020-07-14] MEDS ORDERED: ROCURONIUM 10MG/1ML SYR 10 MG/ML ML ONE (07:32)
[2020-07-14] MEDS ORDERED: FENTANYL CITRATE PF 50 MCG/1 ML 2ML VIAL ONE (07:32)
[2020-07-14] MEDS ORDERED: NOREPINEPHRINE BITARTRATE 1 MG/1 ML ML IV ONE (07:33)
[2020-07-14] MEDS ORDERED: SODIUM CHLORIDE 0.9% 1000ML 1,000 ML IV ONE (07:38)
[2020-07-14] MEDS: CEFAZOLIN SODIUM 1 GM VIAL IVP PRN ×2 (07:50→08:07)
[2020-07-14] MEDS ORDERED: CEFAZOLIN SODIUM 1 GM VIAL ONE (08:21)
[2020-07-14 08:37] LABS: ABG BASE EXCESS 1.8 mmol/L (-2.0-3.0); ABG HCO3 24.5 mmol/L (21.0-28.0); ABG OXYGEN SATURATION 99.1 % (95.0-99.0); ABG PCO2 32 mmHg (35-48)
[2020-07-14] MEDS ORDERED: BUPIVACAINE/PF 0.25% 30ML VIAL IJ ONE (10:07)
[2020-07-14] MEDS ORDERED: MEPERIDINE-PF 25 MG/ML SYG ONE ×2 (10:09→10:27)
[2020-07-14] MEDS ORDERED: HYDROMORPHONE 1 MG/1 ML AMP ONE (10:44)
[2020-07-14] MEDS ORDERED: TRAMADOL HCL 50 MG TABLET PO PRN (10:45)
[2020-07-14] MEDS ORDERED: HYDROMORPHONE HCL 2 MG/ML VIAL IVP SCH (10:45)
[2020-07-14 10:59] LABS: HEMATOCRIT 29.4 % (42-54); MEAN CORPUSCULAR HEMOGLOBIN 31.5 pg (27.0-33.0); MEAN CORPUSCULAR HGB CONC 32.7 g/dL (32.0-36.0); MEAN CORPUSCULAR VOLUME 96.4 fL (79-99); RED BLOOD CELL COUNT(AUTO) 3.05 MIL/uL (4.50-6.20); RED CELL DISTRIBUTION WIDTH 19.9 % (11.0-15.5); WHITE BLOOD COUNT (AUTO) 16.1 K/uL (4.8-10.8)
[2020-07-14] MEDS: METOPROLOL TARTRATE 25 MG TAB PO SCH ×2 (11:18→21:01)
[2020-07-14] MEDS: ACETAMINOPHEN 325 MG TAB PO PRN (11:19)
[2020-07-14] MEDS: BENZONATATE 100 MG CAPSULE PO SCH ×3 (11:19→22:04)
[2020-07-14] MEDS: KETOROLAC TROMETHAMINE 30MG/ML IV SCH ×3 (11:20→23:12)
[2020-07-14] MEDS: FAMOTIDINE/PF 20 MG/2 ML VIAL IV SCH (11:20)
[2020-07-14 11:24] LABS: CREATININE 0.7 mg/dL (0.5-1.5); POTASSIUM 3.8 mmol/L (3.5-5.1)
[2020-07-14 11:28] LABS: ABG BASE EXCESS -2.1 mmol/L (-2.0-3.0); ABG OXYGEN SATURATION 98.2 % (95.0-99.0); ABG PCO2 40 mmHg (35-48)
[2020-07-14] MEDS: MONTELUKAST SODIUM 10 MG TAB PO SCH (11:57)
[2020-07-14] MEDS: LAMOTRIGINE 100 MG TABLET PO SCH (11:57)
[2020-07-14 12:41] LABS: INR 0.99 (0.85-1.15); PARTIAL THROMBOPLASTIN TIME 27.4 SEC (26.3-35.5); PROTHROMBIN TIME 10.7 SEC (9.6-11.6)
[2020-07-14] MEDS: HYDROMORPHONE HCL 0.5 MG/0.5 ML ML IVP PRN ×3 (14:40→22:11)
[2020-07-14] MEDS: TAMSULOSIN HCL 0.4 MG CAP.ER.24H PO SCH (21:01)
[2020-07-14] MEDS ORDERED: ZOLPIDEM TARTRATE 5 MG TAB ONE (22:15)
[2020-07-15] VITALS (22 sets, daily range): BP systolic 107–148; BP diastolic 38–87
[2020-07-15] MEDS: CEFAZOLIN SODIUM 1 GM VIAL IVP SCH ×2 (00:22→07:33)
[2020-07-15] MEDS: ACETYLCYSTEINE 20% 200MG/ML 4ML VIAL IH SCH ×4 (00:33→19:03)
[2020-07-15] MEDS: IPRATROPIUM 0.5 MG/2.5 ML INH IH SCH ×4 (00:33→19:03)
[2020-07-15 03:27] LABS: BASOPHILS % (AUTO) 0.3 % (0.0-5.0); EOSINOPHILS % (AUTO) 0.2 % (0.0-8.0); HEMATOCRIT 30.2 % (42-54); LYMPHOCYTES % (AUTO) 9.8 % (21.0-51.0); MEAN CORPUSCULAR HEMOGLOBIN 31.3 pg (27.0-33.0); MEAN CORPUSCULAR HGB CONC 32.5 g/dL (32.0-36.0); MEAN CORPUSCULAR VOLUME 96.5 fL (79-99); MONOCYTES % (AUTO) 7.7 % (3.0-13.0); NEUTROPHILS % (AUTO) 81.3 % (40.0-77.0); PLATELET COUNT (AUTO) 226 K/uL (130-400); RED BLOOD CELL COUNT(AUTO) 3.13 MIL/uL (4.50-6.20); RED CELL DISTRIBUTION WIDTH 19.9 % (11.0-15.5); WHITE BLOOD COUNT (AUTO) 17.7 K/uL (4.8-10.8)
[2020-07-15 03:40] LABS: ALBUMIN 1.5 g/dL (3.5-5.0); BILIRUBIN,TOTAL 0.4 mg/dL (0.2-1.0); CREATININE 0.9 mg/dL (0.5-1.5); MAGNESIUM 1.4 mg/dL (1.80-2.40); PHOSPHORUS 3.3 mg/dL (2.5-4.9); POTASSIUM 3.9 mmol/L (3.5-5.1); TOTAL PROTEIN, SERUM 6.2 g/dL (6.0-8.3)
[2020-07-15] MEDS: KETOROLAC TROMETHAMINE 30MG/ML IV SCH ×4 (05:36→22:26)
[2020-07-15] MEDS: MAGNESIUM 2GM PREMIX 50ML 50 ML IV PRN (06:03)
[2020-07-15] MEDS: HYDROMORPHONE HCL 0.5 MG/0.5 ML ML IVP PRN ×6 (06:04→22:27)
[2020-07-15] MEDS ORDERED: SODIUM CHLORIDE 0.9% 50 ML IV ONE (07:28)
[2020-07-15] MEDS: LAMOTRIGINE 100 MG TABLET PO SCH (09:17)
[2020-07-15] MEDS: BENZONATATE 100 MG CAPSULE PO SCH ×3 (09:17→20:17)
[2020-07-15] MEDS: METOPROLOL TARTRATE 25 MG TAB PO SCH ×2 (09:17→20:17)
[2020-07-15] MEDS: FAMOTIDINE/PF 20 MG/2 ML VIAL IV SCH (09:17)
[2020-07-15] MEDS: MONTELUKAST SODIUM 10 MG TAB PO SCH (09:17)
[2020-07-15] MEDS: LACTULOSE 20 GM/30 ML UDCUP PO PRN (10:04)
[2020-07-15 15:31] LABS: INR 1.02 (0.85-1.15); PARTIAL THROMBOPLASTIN TIME 28.5 SEC (26.3-35.5)
[2020-07-15] MEDS: HEPARIN 25000 UNITS/250 ML D5W 250 ML IV SCH (15:56)
[2020-07-15] MEDS: ONDANSETRON HCL 4 MG/2 ML VIAL IV PRN (20:09)
[2020-07-15] MEDS: TAMSULOSIN HCL 0.4 MG CAP.ER.24H PO SCH (20:17)
[2020-07-15] MEDS: ACETAMINOPHEN 325 MG TAB PO PRN (20:18)
[2020-07-16] VITALS (21 sets, daily range): BP systolic 105–157; BP diastolic 55–89
[2020-07-16] MEDS: IPRATROPIUM 0.5 MG/2.5 ML INH IH SCH ×5 (00:22→23:48)
[2020-07-16] MEDS: ACETYLCYSTEINE 20% 200MG/ML 4ML VIAL IH SCH ×5 (00:22→23:48)
[2020-07-16] MEDS: HEPARIN 25000 UNITS/250 ML D5W 250 ML IV SCH ×2 (01:52→17:41)
[2020-07-16 04:26] LABS: BASOPHILS % (AUTO) 0.3 % (0.0-5.0); EOSINOPHILS % (AUTO) 1.1 % (0.0-8.0); HEMATOCRIT 27.2 % (42-54); LYMPHOCYTES % (AUTO) 17.5 % (21.0-51.0); MEAN CORPUSCULAR HGB CONC 32.7 g/dL (32.0-36.0); MEAN CORPUSCULAR VOLUME 97.8 fL (79-99); MONOCYTES % (AUTO) 10.5 % (3.0-13.0); NEUTROPHILS % (AUTO) 69.7 % (40.0-77.0); PLATELET COUNT (AUTO) 202 K/uL (130-400); RED BLOOD CELL COUNT(AUTO) 2.78 MIL/uL (4.50-6.20)
[2020-07-16 04:37] LABS: CREATININE 0.8 mg/dL (0.5-1.5); MAGNESIUM 1.6 mg/dL (1.80-2.40); PHOSPHORUS 3.2 mg/dL (2.5-4.9); POTASSIUM 3.4 mmol/L (3.5-5.1)
[2020-07-16] MEDS: HYDROMORPHONE HCL 0.5 MG/0.5 ML ML IVP PRN ×5 (05:47→23:57)
[2020-07-16] MEDS: KETOROLAC TROMETHAMINE 30MG/ML IV SCH ×3 (05:48→17:23)
[2020-07-16] MEDS: MONTELUKAST SODIUM 10 MG TAB PO SCH (08:55)
[2020-07-16] MEDS: BENZONATATE 100 MG CAPSULE PO SCH ×3 (08:56→21:17)
[2020-07-16] MEDS: FAMOTIDINE/PF 20 MG/2 ML VIAL IV SCH (08:56)
[2020-07-16] MEDS: METOPROLOL TARTRATE 25 MG TAB PO SCH ×2 (08:56→21:17)
[2020-07-16] MEDS: LAMOTRIGINE 100 MG TABLET PO SCH (08:56)
[2020-07-16] MEDS: MAGNESIUM 2GM PREMIX 50ML 50 ML IV PRN (15:08)
[2020-07-16] MEDS: POTASSIUM CHLORIDE 20MEQ/100ML 100 ML IV PRN (15:08)
[2020-07-16] MEDS: TAMSULOSIN HCL 0.4 MG CAP.ER.24H PO SCH (21:17)
[2020-07-16] MEDS: ZOLPIDEM TARTRATE 5 MG TAB PO PRN (22:44)
[2020-07-16] MEDS: ACETAMINOPHEN 325 MG TAB PO PRN (22:45)
[2020-07-16] MEDS: ONDANSETRON HCL 4 MG/2 ML VIAL IV PRN (22:45)
[2020-07-17] VITALS (11 sets, daily range): BP systolic 102–156; BP diastolic 51–98
[2020-07-17 04:50] LABS: BASOPHILS % (AUTO) 0.4 % (0.0-5.0); EOSINOPHILS % (AUTO) 0.6 % (0.0-8.0); HEMATOCRIT 28.2 % (42-54); LYMPHOCYTES % (AUTO) 21.1 % (21.0-51.0); MEAN CORPUSCULAR HEMOGLOBIN 31.3 pg (27.0-33.0); MEAN CORPUSCULAR HGB CONC 32.3 g/dL (32.0-36.0); MEAN CORPUSCULAR VOLUME 96.9 fL (79-99); MONOCYTES % (AUTO) 9.1 % (3.0-13.0); NEUTROPHILS % (AUTO) 67.9 % (40.0-77.0); PLATELET COUNT (AUTO) 223 K/uL (130-400); RED BLOOD CELL COUNT(AUTO) 2.91 MIL/uL (4.50-6.20); RED CELL DISTRIBUTION WIDTH 19.7 % (11.0-15.5)
[2020-07-17 05:04] LABS: ALBUMIN 1.4 g/dL (3.5-5.0); BILIRUBIN,TOTAL 0.4 mg/dL (0.2-1.0); CREATININE 0.9 mg/dL (0.5-1.5); MAGNESIUM 1.9 mg/dL (1.80-2.40); PHOSPHORUS 3.6 mg/dL (2.5-4.9); POTASSIUM 3.9 mmol/L (3.5-5.1); TOTAL PROTEIN, SERUM 6.3 g/dL (6.0-8.3)
[2020-07-17] MEDS: HYDROMORPHONE HCL 0.5 MG/0.5 ML ML IVP PRN (05:28)
[2020-07-17] MEDS: ACETYLCYSTEINE 20% 200MG/ML 4ML VIAL IH SCH ×3 (06:42→19:45)
[2020-07-17] MEDS: IPRATROPIUM 0.5 MG/2.5 ML INH IH SCH ×3 (06:42→19:45)
[2020-07-17] MEDS: BENZONATATE 100 MG CAPSULE PO SCH ×3 (09:48→20:15)
[2020-07-17] MEDS: METOPROLOL TARTRATE 25 MG TAB PO SCH ×2 (09:49→20:15)
[2020-07-17] MEDS: TRAMADOL HCL 50 MG TABLET PO PRN (09:49)
[2020-07-17] MEDS: FAMOTIDINE/PF 20 MG/2 ML VIAL IV SCH (09:50)
[2020-07-17] MEDS: LAMOTRIGINE 100 MG TABLET PO SCH (09:53)
[2020-07-17] MEDS: MONTELUKAST SODIUM 10 MG TAB PO SCH (09:53)
[2020-07-17] MEDS: ACETAMINOPHEN 325 MG TAB PO PRN (09:59)
[2020-07-17] MEDS: HYDROMORPHONE HCL 2 MG TAB PO PRN ×2 (14:59→21:01)
[2020-07-17] MEDS: TAMSULOSIN HCL 0.4 MG CAP.ER.24H PO SCH (20:15)
[2020-07-17] MEDS: ZOLPIDEM TARTRATE 5 MG TAB PO PRN (22:14)
[2020-07-18] MEDS: ACETYLCYSTEINE 20% 200MG/ML 4ML VIAL IH SCH ×2 (00:09→06:11)
[2020-07-18] MEDS: IPRATROPIUM 0.5 MG/2.5 ML INH IH SCH ×4 (00:09→18:25)
[2020-07-18 04:03] VITALS: BP 118/68
[2020-07-18] MEDS: HYDROMORPHONE HCL 2 MG TAB PO PRN ×4 (04:50→22:03)
[2020-07-18 07:18] VITALS: BP 119/67
[2020-07-18] MEDS: FAMOTIDINE/PF 20 MG/2 ML VIAL IV SCH (10:06)
[2020-07-18] MEDS: LAMOTRIGINE 100 MG TABLET PO SCH (10:06)
[2020-07-18] MEDS: MONTELUKAST SODIUM 10 MG TAB PO SCH (10:06)
[2020-07-18] MEDS: BENZONATATE 100 MG CAPSULE PO SCH ×3 (10:06→20:03)
[2020-07-18] MEDS: METOPROLOL TARTRATE 25 MG TAB PO SCH ×2 (10:06→19:45)
[2020-07-18 10:43] VITALS: BP 119/71
[2020-07-18 15:45] VITALS: BP 116/65
[2020-07-18] MEDS: ONDANSETRON HCL 4 MG/2 ML VIAL IV PRN (17:08)
[2020-07-18] MEDS: TAMSULOSIN HCL 0.4 MG CAP.ER.24H PO SCH (19:45)
[2020-07-18 20:05] VITALS: BP 123/72
[2020-07-18] MEDS ORDERED: HEPARIN SODIUM 5000UNIT/ML 1ML VIAL ONE (20:17)
[2020-07-18] MEDS: ZOLPIDEM TARTRATE 5 MG TAB PO PRN (22:01)
[2020-07-18 23:39] VITALS: BP 129/55
[2020-07-19] MEDS: IPRATROPIUM 0.5 MG/2.5 ML INH IH SCH ×5 (00:34→23:54)
[2020-07-19 02:07] LABS: BASOPHILS % (AUTO) 0.2 % (0.0-5.0); EOSINOPHILS % (AUTO) 0.4 % (0.0-8.0); HEMATOCRIT 27.6 % (42-54); LYMPHOCYTES % (AUTO) 17.4 % (21.0-51.0); MEAN CORPUSCULAR HEMOGLOBIN 30.9 pg (27.0-33.0); MEAN CORPUSCULAR HGB CONC 31.9 g/dL (32.0-36.0); MEAN CORPUSCULAR VOLUME 96.8 fL (79-99); MONOCYTES % (AUTO) 7.5 % (3.0-13.0); PLATELET COUNT (AUTO) 237 K/uL (130-400); RED BLOOD CELL COUNT(AUTO) 2.85 MIL/uL (4.50-6.20); RED CELL DISTRIBUTION WIDTH 18.8 % (11.0-15.5); WHITE BLOOD COUNT (AUTO) 14.4 K/uL (4.8-10.8)
[2020-07-19 02:19] LABS: ALBUMIN 1.4 g/dL (3.5-5.0); ASPARTATE AMINOTRANSFERASE 24 U/L (10-37); BILIRUBIN,TOTAL 0.7 mg/dL (0.2-1.0); CARBON DIOXIDE 32 mmol/L (21-32); CHLORIDE 98 mmol/L (101-111); CREATININE 0.8 mg/dL (0.5-1.5); GLOMERULAR FILTR. RATE CALC 103 mL/min (>60); GLUCOSE,RANDOM 94 mg/dL (70-105); PHOSPHORUS 3.6 mg/dL (2.5-4.9); POTASSIUM 3.6 mmol/L (3.5-5.1); SODIUM SERUM 135 mmol/L (136-145); TOTAL PROTEIN, SERUM 7.1 g/dL (6.0-8.3); UREA NITROGEN, BLOOD 12 mg/dL (7-18)
[2020-07-19 02:21] LABS: ALANINE AMINOTRANSFERASE < 6 U/L (12-78)
[2020-07-19] MEDS: MAGNESIUM 2GM PREMIX 50ML 50 ML IV PRN (02:52)
[2020-07-19 03:49] VITALS: BP 126/74
[2020-07-19] MEDS: HYDROMORPHONE HCL 2 MG TAB PO PRN ×4 (05:18→18:34)
[2020-07-19] MEDS: LACTULOSE 20 GM/30 ML UDCUP PO PRN (05:18)
[2020-07-19] MEDS: FAMOTIDINE/PF 20 MG/2 ML VIAL IV SCH (09:11)
[2020-07-19] MEDS: BENZONATATE 100 MG CAPSULE PO SCH ×3 (09:11→21:28)
[2020-07-19] MEDS: LAMOTRIGINE 100 MG TABLET PO SCH (09:11)
[2020-07-19] MEDS: METOPROLOL TARTRATE 25 MG TAB PO SCH ×2 (09:12→21:28)
[2020-07-19] MEDS: MONTELUKAST SODIUM 10 MG TAB PO SCH (09:13)
[2020-07-19 09:19] VITALS: BP 125/72
[2020-07-19] MEDS: APIXABAN 5 MG TABLET PO SCH ×2 (09:45→21:28)
[2020-07-19 12:03] VITALS: BP 132/88
[2020-07-19 16:22] VITALS: BP 115/77
[2020-07-19 20:06] VITALS: BP 150/89
[2020-07-19] MEDS ORDERED: APIXABAN 5 MG TABLET PO SCH (21:00)
[2020-07-19] MEDS: TAMSULOSIN HCL 0.4 MG CAP.ER.24H PO SCH (21:28)
[2020-07-19] MEDS: ZOLPIDEM TARTRATE 5 MG TAB PO PRN (21:28)
[2020-07-19 23:10] VITALS: BP 120/82
[2020-07-20] MEDS: HYDROMORPHONE HCL 2 MG TAB PO PRN ×3 (02:45→19:31)
[2020-07-20 04:18] VITALS: BP 133/77
[2020-07-20] MEDS: IPRATROPIUM 0.5 MG/2.5 ML INH IH SCH ×3 (06:14→18:28)
[2020-07-20 08:00] VITALS: BP 128/76
[2020-07-20] MEDS: FAMOTIDINE/PF 20 MG/2 ML VIAL IV SCH (10:04)
[2020-07-20] MEDS: APIXABAN 5 MG TABLET PO SCH ×2 (10:05→19:48)
[2020-07-20] MEDS: LAMOTRIGINE 100 MG TABLET PO SCH (10:05)
[2020-07-20] MEDS: METOPROLOL TARTRATE 25 MG TAB PO SCH ×2 (10:05→19:48)
[2020-07-20] MEDS: MONTELUKAST SODIUM 10 MG TAB PO SCH (10:05)
[2020-07-20] MEDS: BENZONATATE 100 MG CAPSULE PO SCH ×3 (10:05→21:00)
[2020-07-20 11:00] VITALS: BP 142/86
[2020-07-20] MEDS: TRAMADOL HCL 50 MG TABLET PO PRN (14:02)
[2020-07-20] MEDS: ONDANSETRON HCL 4 MG/2 ML VIAL IV PRN (15:56)
[2020-07-20 16:00] VITALS: BP 128/67
[2020-07-20 19:00] VITALS: BP 133/70
[2020-07-20] MEDS: TAMSULOSIN HCL 0.4 MG CAP.ER.24H PO SCH (19:48)
[2020-07-20] MEDS ORDERED: HYDROMORPHONE 1 MG/1 ML AMP ONE (23:05)
[2020-07-20] MEDS: ZOLPIDEM TARTRATE 5 MG TAB PO PRN (23:22)
[2020-07-21] VITALS (7 sets, daily range): BP systolic 107–135; BP diastolic 50–79
[2020-07-21] MEDS: IPRATROPIUM 0.5 MG/2.5 ML INH IH SCH ×4 (00:16→18:00)
[2020-07-21] MEDS: HYDROMORPHONE HCL 2 MG/ML VIAL IVP PRN ×5 (00:37→05:58)
[2020-07-21 06:05] LABS: HEMATOCRIT 27.7 % (42-54); MEAN CORPUSCULAR HEMOGLOBIN 31.1 pg (27.0-33.0); MEAN CORPUSCULAR HGB CONC 32.5 g/dL (32.0-36.0); MEAN CORPUSCULAR VOLUME 95.8 fL (79-99); RED BLOOD CELL COUNT(AUTO) 2.89 MIL/uL (4.50-6.20); RED CELL DISTRIBUTION WIDTH 18.8 % (11.0-15.5); WHITE BLOOD COUNT (AUTO) 14.1 K/uL (4.8-10.8)
[2020-07-21 06:18] LABS: CREATININE 0.8 mg/dL (0.5-1.5); POTASSIUM 3.4 mmol/L (3.5-5.1)
[2020-07-21] MEDS: POTASSIUM CHLORIDE 20 MEQ ERTAB PO PRN ×2 (06:30→11:39)
[2020-07-21] MEDS: HYDROMORPHONE HCL 2 MG TAB PO PRN ×4 (06:33→22:12)
[2020-07-21] MEDS: APIXABAN 5 MG TABLET PO SCH ×2 (08:49→20:51)
[2020-07-21] MEDS: FAMOTIDINE/PF 20 MG/2 ML VIAL IV SCH (08:49)
[2020-07-21] MEDS: METOPROLOL TARTRATE 25 MG TAB PO SCH ×2 (08:50→20:51)
[2020-07-21] MEDS: MONTELUKAST SODIUM 10 MG TAB PO SCH (08:50)
[2020-07-21] MEDS: BENZONATATE 100 MG CAPSULE PO SCH ×3 (08:50→20:52)
[2020-07-21] MEDS: LAMOTRIGINE 100 MG TABLET PO SCH (08:51)
[2020-07-21] MEDS: MAGNESIUM 2GM PREMIX 50ML 50 ML IV PRN (12:43)
[2020-07-21] MEDS: KETOROLAC TROMETHAMINE 30MG/ML IV PRN (14:15)
[2020-07-21] MEDS: TAMSULOSIN HCL 0.4 MG CAP.ER.24H PO SCH (20:52)
[2020-07-21] MEDS: FUROSEMIDE 10 MG/ML 2ML VIAL IV SCH (20:53)
[2020-07-21] MEDS: ZOLPIDEM TARTRATE 5 MG TAB PO PRN (22:04)
[2020-07-22] MEDS: IPRATROPIUM 0.5 MG/2.5 ML INH IH SCH ×4 (00:04→19:09)
[2020-07-22 03:58] VITALS: BP 102/54
[2020-07-22] MEDS: FUROSEMIDE 10 MG/ML 2ML VIAL IV SCH ×2 (08:19→21:46)
[2020-07-22] MEDS: METOPROLOL TARTRATE 25 MG TAB PO SCH ×2 (08:20→21:45)
[2020-07-22] MEDS: APIXABAN 5 MG TABLET PO SCH ×2 (08:20→21:45)
[2020-07-22] MEDS: MONTELUKAST SODIUM 10 MG TAB PO SCH (08:20)
[2020-07-22] MEDS: HYDROMORPHONE HCL 2 MG TAB PO PRN ×3 (08:21→21:45)
[2020-07-22 08:28] VITALS: BP 108/63
[2020-07-22] MEDS: BENZONATATE 100 MG CAPSULE PO SCH ×3 (10:10→21:44)
[2020-07-22] MEDS: LAMOTRIGINE 100 MG TABLET PO SCH (10:10)
[2020-07-22] MEDS: FAMOTIDINE 20MG TAB 20 MG TAB PO SCH (10:12)
[2020-07-22 11:30] VITALS: BP 104/70
[2020-07-22 16:18] VITALS: BP 137/49
[2020-07-22 20:04] VITALS: BP 112/56
[2020-07-22] MEDS: TAMSULOSIN HCL 0.4 MG CAP.ER.24H PO SCH (21:44)
[2020-07-22] MEDS: ZOLPIDEM TARTRATE 5 MG TAB PO PRN (21:45)
[2020-07-22] MEDS: MAGNESIUM 2GM PREMIX 50ML 50 ML IV PRN (21:52)
[2020-07-22 23:28] VITALS: BP 102/59
[2020-07-23] MEDS: IPRATROPIUM 0.5 MG/2.5 ML INH IH SCH ×5 (00:03→23:50)
[2020-07-23 03:26] VITALS: BP 116/47
[2020-07-23] MEDS: HYDROMORPHONE HCL 2 MG TAB PO PRN ×4 (04:17→18:44)
[2020-07-23 04:31] LABS: HEMATOCRIT 26.3 % (42-54); MEAN CORPUSCULAR HEMOGLOBIN 31.8 pg (27.0-33.0); MEAN CORPUSCULAR HGB CONC 33.1 g/dL (32.0-36.0); RED BLOOD CELL COUNT(AUTO) 2.74 MIL/uL (4.50-6.20); RED CELL DISTRIBUTION WIDTH 18.8 % (11.0-15.5); WHITE BLOOD COUNT (AUTO) 15.5 K/uL (4.8-10.8)
[2020-07-23 04:50] LABS: CREATININE 0.9 mg/dL (0.5-1.5); MAGNESIUM 1.4 mg/dL (1.80-2.40); PHOSPHORUS 3.4 mg/dL (2.5-4.9); POTASSIUM 3.5 mmol/L (3.5-5.1)
[2020-07-23] MEDS: MAGNESIUM 2GM PREMIX 50ML 50 ML IV PRN (06:57)
[2020-07-23] MEDS: POTASSIUM CHLORIDE 10% ELIXIR 20 MEQ/15 ML UDCUP PO PRN (06:57)
[2020-07-23 08:13] VITALS: BP 108/54
[2020-07-23] MEDS: FUROSEMIDE 10 MG/ML 2ML VIAL IV SCH ×2 (09:37→21:14)
[2020-07-23] MEDS: LAMOTRIGINE 100 MG TABLET PO SCH (09:38)
[2020-07-23] MEDS: APIXABAN 5 MG TABLET PO SCH ×2 (09:38→21:13)
[2020-07-23] MEDS: FAMOTIDINE 20MG TAB 20 MG TAB PO SCH (09:38)
[2020-07-23] MEDS: MONTELUKAST SODIUM 10 MG TAB PO SCH (09:38)
[2020-07-23] MEDS: METOPROLOL TARTRATE 25 MG TAB PO SCH ×2 (09:38→21:12)
[2020-07-23] MEDS: BENZONATATE 100 MG CAPSULE PO SCH ×3 (09:38→21:13)
[2020-07-23 12:07] VITALS: BP 93/60
[2020-07-23 16:19] VITALS: BP 117/59
[2020-07-23] MEDS: LACTULOSE 20 GM/30 ML UDCUP PO PRN (19:02)
[2020-07-23 20:12] VITALS: BP 115/66
[2020-07-23] MEDS: ZOLPIDEM TARTRATE 5 MG TAB PO PRN (21:12)
[2020-07-23] MEDS: TAMSULOSIN HCL 0.4 MG CAP.ER.24H PO SCH (21:13)
[2020-07-23] MEDS: ONDANSETRON HCL 4 MG/2 ML VIAL IV PRN (21:51)
[2020-07-24] VITALS (7 sets, daily range): BP systolic 98–116; BP diastolic 63–74
[2020-07-24] MEDS: HYDROMORPHONE HCL 2 MG TAB PO PRN ×3 (04:13→21:24)
[2020-07-24] MEDS: IPRATROPIUM 0.5 MG/2.5 ML INH IH SCH ×4 (06:23→23:18)
[2020-07-24] MEDS: MONTELUKAST SODIUM 10 MG TAB PO SCH (10:15)
[2020-07-24] MEDS: FAMOTIDINE 20MG TAB 20 MG TAB PO SCH (10:15)
[2020-07-24] MEDS: LAMOTRIGINE 100 MG TABLET PO SCH (10:15)
[2020-07-24] MEDS: FUROSEMIDE 10 MG/ML 2ML VIAL IV SCH ×2 (10:15→21:17)
[2020-07-24] MEDS: APIXABAN 5 MG TABLET PO SCH ×2 (10:16→21:17)
[2020-07-24] MEDS: BENZONATATE 100 MG CAPSULE PO SCH ×3 (10:16→21:18)
[2020-07-24] MEDS: METOPROLOL TARTRATE 25 MG TAB PO SCH ×2 (10:16→21:17)
[2020-07-24] MEDS: KETOROLAC TROMETHAMINE 30MG/ML IV PRN (12:33)
[2020-07-24] MEDS ORDERED: HYDROMORPHONE HCL 2 MG TAB ONE (15:36)
[2020-07-24] MEDS: ONDANSETRON HCL 4 MG/2 ML VIAL IV PRN (18:55)
[2020-07-24] MEDS: TAMSULOSIN HCL 0.4 MG CAP.ER.24H PO SCH (21:17)
[2020-07-24] MEDS: ZOLPIDEM TARTRATE 5 MG TAB PO PRN (23:14)
[2020-07-25] MEDS: HYDROMORPHONE HCL 2 MG TAB PO PRN ×4 (03:56→20:17)
[2020-07-25 04:00] VITALS: BP 118/65
[2020-07-25 05:31] LABS: HEMATOCRIT 25.5 % (42-54); MEAN CORPUSCULAR HEMOGLOBIN 31.8 pg (27.0-33.0); MEAN CORPUSCULAR HGB CONC 33.3 g/dL (32.0-36.0); MEAN CORPUSCULAR VOLUME 95.5 fL (79-99); PLATELET COUNT (AUTO) 226 K/uL (130-400); RED BLOOD CELL COUNT(AUTO) 2.67 MIL/uL (4.50-6.20); RED CELL DISTRIBUTION WIDTH 18.9 % (11.0-15.5); WHITE BLOOD COUNT (AUTO) 14.7 K/uL (4.8-10.8)
[2020-07-25 06:13] LABS: CREATININE 1.1 mg/dL (0.5-1.5)
[2020-07-25 06:22] LABS: POTASSIUM 2.9 mmol/L (3.5-5.1)
[2020-07-25] MEDS: POTASSIUM CHLORIDE 20MEQ/100ML 100 ML IV PRN (06:39)
[2020-07-25] MEDS: POTASSIUM CHLORIDE 20 MEQ ERTAB PO PRN (06:44)
[2020-07-25 07:27] VITALS: BP 122/53
[2020-07-25] MEDS: IPRATROPIUM 0.5 MG/2.5 ML INH IH SCH ×4 (08:20→23:39)
[2020-07-25] MEDS: BENZONATATE 100 MG CAPSULE PO SCH ×3 (09:45→20:16)
[2020-07-25] MEDS: APIXABAN 5 MG TABLET PO SCH ×2 (09:45→20:17)
[2020-07-25] MEDS: FUROSEMIDE 10 MG/ML 2ML VIAL IV SCH ×2 (09:45→20:16)
[2020-07-25] MEDS: FAMOTIDINE 20MG TAB 20 MG TAB PO SCH (09:48)
[2020-07-25] MEDS: LAMOTRIGINE 100 MG TABLET PO SCH (09:48)
[2020-07-25] MEDS: MONTELUKAST SODIUM 10 MG TAB PO SCH (09:48)
[2020-07-25] MEDS: METOPROLOL TARTRATE 25 MG TAB PO SCH ×2 (09:48→20:16)
[2020-07-25] MEDS: POTASSIUM CHLORIDE 10% ELIXIR 20 MEQ/15 ML UDCUP PO PRN ×2 (09:49→12:42)
[2020-07-25 11:10] VITALS: BP 115/54
[2020-07-25] MEDS: KETOROLAC TROMETHAMINE 30MG/ML IV PRN (12:41)
[2020-07-25 15:48] VITALS: BP 116/59
[2020-07-25 19:45] VITALS: BP 114/51
[2020-07-25] MEDS: TAMSULOSIN HCL 0.4 MG CAP.ER.24H PO SCH (20:17)
[2020-07-25] MEDS: ZOLPIDEM TARTRATE 5 MG TAB PO PRN (21:47)
[2020-07-26 00:37] VITALS: BP 116/59
[2020-07-26] MEDS: HYDROMORPHONE HCL 2 MG TAB PO PRN ×3 (03:12→13:26)
[2020-07-26 03:48] VITALS: BP 115/56
[2020-07-26 06:11] LABS: HEMATOCRIT 27.2 % (42-54); MEAN CORPUSCULAR HEMOGLOBIN 31.8 pg (27.0-33.0); MEAN CORPUSCULAR HGB CONC 33.5 g/dL (32.0-36.0); MEAN CORPUSCULAR VOLUME 95.1 fL (79-99); PLATELET COUNT (AUTO) 252 K/uL (130-400); RED BLOOD CELL COUNT(AUTO) 2.86 MIL/uL (4.50-6.20); RED CELL DISTRIBUTION WIDTH 18.7 % (11.0-15.5)
[2020-07-26 06:21] LABS: CREATININE 1.3 mg/dL (0.5-1.5); MAGNESIUM 1.5 mg/dL (1.80-2.40); POTASSIUM 3.2 mmol/L (3.5-5.1)
[2020-07-26] MEDS: MAGNESIUM 2GM PREMIX 50ML 50 ML IV PRN (06:24)
[2020-07-26] MEDS: POTASSIUM CHLORIDE 10% ELIXIR 20 MEQ/15 ML UDCUP PO PRN (06:24)
[2020-07-26] MEDS: IPRATROPIUM 0.5 MG/2.5 ML INH IH SCH ×2 (06:44→11:16)
[2020-07-26 07:31] LABS: LYMPHOCYTES % (MANUAL) 10 % (22-44); MAN.DIFF COMMENT-IMPRESSION MANUAL DIFFERENTIAL; MONOCYTES % (MANUAL) 1 % (2-9); PLATELET MORPHOLOGY COMMENT ADEQUATE; SEGMENTED NEUTROPHILS % 89 % (40-70)
[2020-07-26 08:05] VITALS: BP 118/55
[2020-07-26] MEDS: APIXABAN 5 MG TABLET PO SCH (08:45)
[2020-07-26] MEDS: MONTELUKAST SODIUM 10 MG TAB PO SCH (08:56)
[2020-07-26] MEDS: BENZONATATE 100 MG CAPSULE PO SCH ×2 (08:56→13:25)
[2020-07-26] MEDS: LAMOTRIGINE 100 MG TABLET PO SCH (08:57)
[2020-07-26] MEDS: METOPROLOL TARTRATE 25 MG TAB PO SCH (08:57)
[2020-07-26] MEDS: POTASSIUM CHLORIDE 20 MEQ ERTAB PO PRN ×2 (08:57→12:00)
[2020-07-26] MEDS: FAMOTIDINE 20MG TAB 20 MG TAB PO SCH (08:57)
[2020-07-26] MEDS: FUROSEMIDE 10 MG/ML 2ML VIAL IV SCH (08:57)
[2020-07-26 11:43] VITALS: BP 100/58
== END 2020-07-26 14:00 | disposition home or self-care (01) | DRG 853 ==
LOC: EDH 13:54 → EDHIP 13:55 → 4CH 16:30 → 2CH 07-09 18:53 → 2DH 07-14 07:41 → 4CH 07-17 17:01
PROVIDERS: ADMIT Internal Medicine Hematology & Oncology; ATTEND Internal Medicine Hematology & Oncology
PROC: 5A0935A Assistance with Respiratory Ventilation, Less than 24 Consecutive Hours, High Flow/Velocity Cannula (ICD-10-PCS; 2020-07-08)
PROC: 0W9930Z Drainage of Right Pleural Cavity with Drainage Device, Percutaneous Approach (ICD-10-PCS; 2020-07-09)
PROC: 02HV33Z Insertion of Infusion Device into Superior Vena Cava, Percutaneous Approach (ICD-10-PCS; 2020-07-11)
PROC: B548ZZA Ultrasonography of Superior Vena Cava, Guidance (ICD-10-PCS; 2020-07-11)
PROC: 5A09357 Assistance with Respiratory Ventilation, Less than 24 Consecutive Hours, Continuous Positive Airway Pressure (ICD-10-PCS; 2020-07-13)
PROC: 0BP Respiratory System, Removal (ICD-10-PCS; 2020-07-14)
PROC: 5A09357 Assistance with Respiratory Ventilation, Less than 24 Consecutive Hours, Continuous Positive Airway Pressure (ICD-10-PCS; 2020-07-14)
PROC: 0W994ZZ Drainage of Right Pleural Cavity, Percutaneous Endoscopic Approach (ICD-10-PCS; principal; 2020-07-14 07:30)
PROC: 0BNK4ZZ Release Right Lung, Percutaneous Endoscopic Approach (ICD-10-PCS; 2020-07-14 07:30)
PROC: 5A09357 Assistance with Respiratory Ventilation, Less than 24 Consecutive Hours, Continuous Positive Airway Pressure (ICD-10-PCS; 2020-07-15)
PROC: 5A09357 Assistance with Respiratory Ventilation, Less than 24 Consecutive Hours, Continuous Positive Airway Pressure (ICD-10-PCS; 2020-07-16)
PROC: 5A09357 Assistance with Respiratory Ventilation, Less than 24 Consecutive Hours, Continuous Positive Airway Pressure (ICD-10-PCS; 2020-07-17)
PROC: 5A09357 Assistance with Respiratory Ventilation, Less than 24 Consecutive Hours, Continuous Positive Airway Pressure (ICD-10-PCS; 2020-07-18)
PROC: 5A09357 Assistance with Respiratory Ventilation, Less than 24 Consecutive Hours, Continuous Positive Airway Pressure (ICD-10-PCS; 2020-07-19)
PROC: 5A09357 Assistance with Respiratory Ventilation, Less than 24 Consecutive Hours, Continuous Positive Airway Pressure (ICD-10-PCS; 2020-07-20)
PROC: 5A09357 Assistance with Respiratory Ventilation, Less than 24 Consecutive Hours, Continuous Positive Airway Pressure (ICD-10-PCS; 2020-07-21)
PROC: 5A09357 Assistance with Respiratory Ventilation, Less than 24 Consecutive Hours, Continuous Positive Airway Pressure (ICD-10-PCS; 2020-07-22)
PROC: 5A09357 Assistance with Respiratory Ventilation, Less than 24 Consecutive Hours, Continuous Positive Airway Pressure (ICD-10-PCS; 2020-07-23)
PROC: 5A09357 Assistance with Respiratory Ventilation, Less than 24 Consecutive Hours, Continuous Positive Airway Pressure (ICD-10-PCS; 2020-07-24)
PROC: 5A09357 Assistance with Respiratory Ventilation, Less than 24 Consecutive Hours, Continuous Positive Airway Pressure (ICD-10-PCS; 2020-07-26)
DX: A41.9 Sepsis, unspecified organism (principal); J15.0 Pneumonia due to Klebsiella pneumoniae; I26.99 Other pulmonary embolism without acute cor pulmonale; G93.41 Metabolic encephalopathy; J86.0 Pyothorax with fistula; R65.21 Severe sepsis with septic shock; J96.90 Respiratory failure, unspecified, unspecified whether with hypoxia or hypercapnia; J69.0 Pneumonitis due to inhalation of food and vomit; D84.9 Immunodeficiency, unspecified; N39.0 Urinary tract infection, site not specified; E44.0 Moderate protein-calorie malnutrition; J94.8 Other specified pleural conditions; I42.9 Cardiomyopathy, unspecified; D68.59 Other primary thrombophilia; I82.412 Acute embolism and thrombosis of left femoral vein; I82.432 Acute embolism and thrombosis of left popliteal vein; I82.452 Acute embolism and thrombosis of left peroneal vein; I82.442 Acute embolism and thrombosis of left tibial vein; K22.0 Achalasia of cardia; S00.03XA Contusion of scalp, initial encounter; E66.01 Morbid (severe) obesity due to excess calories; Z96.653 Presence of artificial knee joint, bilateral; Z20.828 Contact with and (suspected) exposure to other viral communicable diseases; R29.6 Repeated falls; N40.0 Benign prostatic hyperplasia without lower urinary tract symptoms; K21.9 Gastro-esophageal reflux disease without esophagitis; J98.2 Interstitial emphysema; I48.0 Paroxysmal atrial fibrillation; I10 Essential (primary) hypertension; G89.29 Other chronic pain; G47.33 Obstructive sleep apnea (adult) (pediatric); F31.9 Bipolar disorder, unspecified; M54.9 Dorsalgia, unspecified; R53.81 Other malaise; E78.5 Hyperlipidemia, unspecified; E03.9 Hypothyroidism, unspecified; B96.4 Proteus (mirabilis) (morganii) as the cause of diseases classified elsewhere; X58.XXXA Exposure to other specified factors, initial encounter; B96.20 Unspecified Escherichia coli [E. coli] as the cause of diseases classified elsewhere; Z85.3 Personal history of malignant neoplasm of breast; Z68.32 Body mass index [BMI] 32.0-32.9, adult; Z87.01 Personal history of pneumonia (recurrent); Z86.711 Personal history of pulmonary embolism; Z92.21 Personal history of antineoplastic chemotherapy; Z92.3 Personal history of irradiation; Z98.84 Bariatric surgery status; Z90.49 Acquired absence of other specified parts of digestive tract; Z90.11 Acquired absence of right breast and nipple; Z86.718 Personal history of other venous thrombosis and embolism; Z83.3 Family history of diabetes mellitus; Z82.3 Family history of stroke; Z80.0 Family history of malignant neoplasm of digestive organs; Z79.899 Other long term (current) drug therapy; Z79.01 Long term (current) use of anticoagulants; Y93.89 Activity, other specified; Y92.89 Other specified places as the place of occurrence of the external cause; Y99.8 Other external cause status
CPT/HCPCS: 36415; 36600; 70450; 71045; 71046; 71250; 71275; 74230; 75989; 77012; 80048; 80053; 80202; 81001; 82150; 82435; 82803; 82945; 82947; 82948; 83605; 83615; 83735; 83986; 84100; 84132; 84155; 84157; 84295; 84484; 85018; 85025; 85027; 85378; 85610; 85730; 86850; 86900; 86901; 87040; 87070; 87071; 87076; 87077; 87088; 87116; 87186; 87205; 87206; 87426; 88112; 88305; 88312; 88341; 88342; 89051; 92526; 92610; 92611; 93005; 93306; 93356; 93970; 94640; 94664; 97039; A4606; A7048; C1729; C1894; G0378; J0330; J0690; J1100; J1170; J1644; J1885; J1940; J2001; J2175; J2250; J2405; J2543; J2704; J2710; J3010; J3370; J3475; J3480; J3490; J7030; J7040; J7050; J7608; Q9967; U0003

== ENCOUNTER 2020-07-29 19:56 | Inpatient (IN) | payer MEDICARE ==
[~2020-07-29] VITALS: Ht 180.3 cm; Wt 107.4 kg
[~2020-07-29 19:56] MED LIST changes: -LACT10SO32 PO; -LIOT5TAB11 PO; +ONDA8TAB12 PO; +POTA-79 PO; -TESTOSTERONE IJ; -TOPI100T37 PO
[2020-07-29 20:15] LABS: ABG BASE EXCESS 5.8 mmol/L (-2.0-3.0); ABG HCO3 30.2 mmol/L (21.0-28.0); ABG OXYGEN SATURATION 69.2 % (95.0-99.0); ABG PCO2 43 mmHg (35-48)
[2020-07-29] MEDS ORDERED: ONDANSETRON HCL 4 MG/2 ML VIAL ONE (20:59)
[2020-07-29] MEDS ORDERED: SODIUM CHLORIDE 0.9% 500ML 500 ML IV ONE (21:00)
[2020-07-29] MEDS ORDERED: AZITHROMYCIN 500MG+NS 250ML 250 ML IV ONE (21:00)
[2020-07-29] MEDS ORDERED: CEFTRIAXONE SODIUM 2 GM VIAL ONE (21:00)
[2020-07-29 21:03] LABS: BASOPHILS % (AUTO) 0.3 % (0.0-5.0); EOSINOPHILS % (AUTO) 0.3 % (0.0-8.0); HEMATOCRIT 28.3 % (42-54); LYMPHOCYTES % (AUTO) 16.2 % (21.0-51.0); MEAN CORPUSCULAR HEMOGLOBIN 31.8 pg (27.0-33.0); MEAN CORPUSCULAR HGB CONC 32.5 g/dL (32.0-36.0); MEAN CORPUSCULAR VOLUME 97.9 fL (79-99); MONOCYTES % (AUTO) 4.1 % (3.0-13.0); NEUTROPHILS % (AUTO) 77.6 % (40.0-77.0); NUCLEATED RED BLOOD CELLS 0.3 % (0.0-0.19); PLATELET COUNT (AUTO) 163 K/uL (130-400); RED BLOOD CELL COUNT(AUTO) 2.89 MIL/uL (4.50-6.20); RED CELL DISTRIBUTION WIDTH 19.7 % (11.0-15.5); WHITE BLOOD COUNT (AUTO) 15.7 K/uL (4.8-10.8)
[2020-07-29 21:18] LABS: INR 1.2 (0.85-1.15); PARTIAL THROMBOPLASTIN TIME 28.2 SEC (26.3-35.5); PROTHROMBIN TIME 12.9 SEC (9.6-11.6)
[2020-07-29 21:21] LABS: B-TYPE NATRIURETIC PEPTIDE 102 pg/mL (0-100)
[2020-07-29 21:29] LABS: CREATININE 1.1 mg/dL (0.5-1.5); POTASSIUM 4.3 mmol/L (3.5-5.1)
[2020-07-29 21:32] LABS: APPEARANCE,URINE Clear (CLEAR); BILIRUBIN,URINE Moderate (NEGATIVE); COLOR,URINE Dark Yellow (YELLOW); GLUCOSE, URINE (UA) Negative (NEGATIVE); KETONES,URINE Trace mg/dL (NEGATIVE); LEUKOCYTE ESTERASE ,URINE Trace (NEGATIVE); NITRATE,URINE Negative (NEGATIVE); OCCULT BLOOD,URINE Negative (NEGATIVE); PROTEIN,URINE Negative (NEGATIVE)
[2020-07-29 21:33] LABS: ALBUMIN 1.4 g/dL (3.5-5.0); BILIRUBIN,TOTAL 1.1 mg/dL (0.2-1.0); TOTAL PROTEIN, SERUM 6.8 g/dL (6.0-8.3)
[2020-07-29 21:44] LABS: BACTERIA,URINE Rare /HPF (None Seen); RBC,URINE 0-1 /HPF (0-1); SQUAMOUS EPITHELIAL CELL,UR Few /HPF (0-2)
[2020-07-29 21:45] LABS: MUCUS,URINE Rare LPF (None Seen)
[2020-07-29] MEDS ORDERED: ACETAMINOPHEN EXTRA STRENGTH 500 MG TABLET ONE (22:58)
[2020-07-29] MEDS ORDERED: ERGOCALCIFEROL (VITAMIN D2) 50,000 UNIT CAPSULE PO ONE (23:30)
[2020-07-29] MEDS ORDERED: ONDANSETRON HCL 4 MG/2 ML VIAL IV PRN (23:30)
[2020-07-29] MEDS ORDERED: CEFTRIAXONE SODIUM 1 GM IV SCH (23:30)
[2020-07-29] MEDS ORDERED: AZITHROMYCIN 500MG+NS 250ML 250 ML IV SCH (23:30)
[2020-07-29] MEDS ORDERED: LACTULOSE 20 GM/30 ML UDCUP PO PRN (23:30)
[2020-07-29] MEDS ORDERED: ACETAMINOPHEN 325 MG TAB PO PRN ×2 (23:30)
[2020-07-30] MEDS ORDERED: ALBUTEROL INHALER 90MCG/INH IH PRN
[2020-07-30] MEDS: DEXAMETHASONE SOD PHOSPHATE 4 MG/ML 1ML VIAL IVP SCH
[2020-07-30] MEDS ORDERED: DEXAMETHASONE SOD PHOSPHATE 4 MG/ML 1ML VIAL ONE (00:52)
[2020-07-30] MEDS ORDERED: ERGOCALCIFEROL (VITAMIN D2) 50,000 UNIT CAPSULE ONE (00:52)
[2020-07-30 02:03] LABS: BASOPHILS % (AUTO) 0.2 % (0.0-5.0); EOSINOPHILS % (AUTO) 0.5 % (0.0-8.0); HEMATOCRIT 25.6 % (42-54); LYMPHOCYTES % (AUTO) 19.5 % (21.0-51.0); MEAN CORPUSCULAR HEMOGLOBIN 31.5 pg (27.0-33.0); MEAN CORPUSCULAR HGB CONC 32.8 g/dL (32.0-36.0); MEAN CORPUSCULAR VOLUME 95.9 fL (79-99); MONOCYTES % (AUTO) 4.3 % (3.0-13.0); NEUTROPHILS % (AUTO) 73.9 % (40.0-77.0); NUCLEATED RED BLOOD CELLS 0.2 % (0.0-0.19); PLATELET COUNT (AUTO) 133 K/uL (130-400); RED BLOOD CELL COUNT(AUTO) 2.67 MIL/uL (4.50-6.20); RED CELL DISTRIBUTION WIDTH 19.7 % (11.0-15.5); WHITE BLOOD COUNT (AUTO) 14.8 K/uL (4.8-10.8)
[2020-07-30 02:13] LABS: ALBUMIN 1.2 g/dL (3.5-5.0); BILIRUBIN,TOTAL 0.9 mg/dL (0.2-1.0); TOTAL PROTEIN, SERUM 6.1 g/dL (6.0-8.3)
[2020-07-30] MEDS ORDERED: IOHEXOL-350 75 ML VIAL IV ONE ×2 (04:19→05:13)
[2020-07-30] MEDS ORDERED: ENOXAPARIN SODIUM 100 MG/1 ML SQ ONE ×2 (08:05→22:10)
[2020-07-30] MEDS ORDERED: ASCORBIC ACID 500 MG TAB ONE (08:05)
[2020-07-30] MEDS ORDERED: ZINC SULFATE 220 CAPSULE ONE (08:06)
[2020-07-30] MEDS ORDERED: ACETAMINOPHEN 325 MG TAB ONE (08:06)
[2020-07-30] MEDS ORDERED: FAMOTIDINE 20MG TAB 20 MG TAB ONE ×2 (08:06→22:10)
[2020-07-30] MEDS: ZINC SULFATE 220 CAPSULE PO SCH (09:00)
[2020-07-30] MEDS: FAMOTIDINE 20MG TAB 20 MG TAB PO SCH ×2 (09:00→21:00)
[2020-07-30] MEDS ORDERED: ENOXAPARIN SODIUM 40 MG/0.4 ML SYRINGE SQ SCH (09:00)
[2020-07-30] MEDS: ASCORBIC ACID 500 MG TAB PO SCH (09:00)
[2020-07-30] MEDS ORDERED: FUROSEMIDE 10 MG/ML 4ML VIAL IV SCH (13:00)
[2020-07-30] MEDS ORDERED: ENOXAPARIN SODIUM 100 MG/1 ML SQ SCH (14:30)
[2020-07-30] MEDS ORDERED: HYDROMORPHONE HCL 2 MG TAB ONE ×2 (16:57→22:11)
[2020-07-30] MEDS ORDERED: ONDANSETRON HCL 4 MG/2 ML VIAL ONE (16:57)
[2020-07-30] MEDS: ENOXAPARIN SODIUM 100 MG/1 ML SQ SCH (21:00)
[2020-07-30] MEDS ORDERED: AZITHROMYCIN 500MG+NS 250ML 250 ML IV ONE (22:10)
[2020-07-30] MEDS ORDERED: CEFTRIAXONE SODIUM 1 GM ONE (22:11)
[2020-07-31] MEDS ORDERED: TEMAZEPAM 7.5 MG CAPSULE PO ONE (02:50)
[2020-07-31 04:28] LABS: BASOPHILS % (AUTO) 0.2 % (0.0-5.0); EOSINOPHILS % (AUTO) 1.3 % (0.0-8.0); MEAN CORPUSCULAR HEMOGLOBIN 31.1 pg (27.0-33.0); MEAN CORPUSCULAR HGB CONC 33.3 g/dL (32.0-36.0); MEAN CORPUSCULAR VOLUME 93.4 fL (79-99); MONOCYTES % (AUTO) 4.5 % (3.0-13.0); NEUTROPHILS % (AUTO) 69.4 % (40.0-77.0); NUCLEATED RED BLOOD CELLS 0.2 % (0.0-0.19); PLATELET COUNT (AUTO) 116 K/uL (130-400); RED BLOOD CELL COUNT(AUTO) 2.57 MIL/uL (4.50-6.20); RED CELL DISTRIBUTION WIDTH 19.8 % (11.0-15.5); WHITE BLOOD COUNT (AUTO) 14.5 K/uL (4.8-10.8)
[2020-07-31 04:46] LABS: ALBUMIN 1.1 g/dL (3.5-5.0); BILIRUBIN,TOTAL 0.6 mg/dL (0.2-1.0); CREATININE 0.8 mg/dL (0.5-1.5); POTASSIUM 3.3 mmol/L (3.5-5.1); TOTAL PROTEIN, SERUM 6.1 g/dL (6.0-8.3)
[2020-07-31] MEDS ORDERED: HYDROMORPHONE HCL 2 MG TAB ONE ×3 (04:52→16:03)
[2020-07-31 05:45] LABS: CRP QUANTITATIVE 155.8 mg/L (0.00-9.0)
[2020-07-31] MEDS ORDERED: DOXYCYCLINE HYCLATE 100 MG TABLET PO ONE (07:40)
[2020-07-31] MEDS ORDERED: DEXAMETHASONE SOD PHOSPHATE 4 MG/ML 1ML VIAL ONE (07:41)
[2020-07-31] MEDS ORDERED: ASCORBIC ACID 500 MG TAB ONE ×2 (07:41→11:49)
[2020-07-31] MEDS ORDERED: THIAMINE HCL 100 MG/ML 2ML VIAL ONE (07:41)
[2020-07-31] MEDS ORDERED: ZINC SULFATE 220 CAPSULE ONE ×2 (07:42→11:48)
[2020-07-31] MEDS ORDERED: ENOXAPARIN SODIUM 40 MG/0.4 ML SYRINGE SQ ONE (07:42)
[2020-07-31] MEDS ORDERED: CEFTRIAXONE SODIUM 1 GM ONE (07:42)
[2020-07-31] MEDS ORDERED: ONDANSETRON HCL 4 MG/2 ML VIAL ONE (08:43)
[2020-07-31] MEDS: FAMOTIDINE 20MG TAB 20 MG TAB PO SCH ×3 (09:00→21:08)
[2020-07-31] MEDS: ASCORBIC ACID 500 MG TAB PO SCH (09:00)
[2020-07-31] MEDS: ZINC SULFATE 220 CAPSULE PO SCH (09:00)
[2020-07-31] MEDS ORDERED: FAMOTIDINE 20MG TAB 20 MG TAB ONE (11:46)
[2020-07-31] MEDS ORDERED: ENOXAPARIN SODIUM 100 MG/1 ML SQ ONE (11:47)
[2020-07-31] MEDS: DOXYCYCLINE 100MG+NS 250ML 250 ML IV SCH (13:30)
[2020-07-31] MEDS ORDERED: VANCOMYCIN PROTOCOL PER PHARMACY IV SCH (13:30)
[2020-07-31] MEDS: CEFEPIME HCL 2 GM VIAL IVP SCH (13:30)
[2020-07-31 13:34] LABS: ABG BASE EXCESS 5.8 mmol/L (-2.0-3.0); ABG HCO3 30.4 mmol/L (21.0-28.0); ABG OXYGEN SATURATION 98.5 % (95.0-99.0); ABG PCO2 44 mmHg (35-48)
[2020-07-31] MEDS: VANCOMYCIN 1.5 GM in SODIUM CHLORIDE 0.9% 250 ML IV SCH ×2 (13:45→21:12)
[2020-07-31] MEDS ORDERED: COMPOUND IV REFRIGERATED 1 EACH IVSOLN MISC PRN (14:00)
[2020-07-31] MEDS ORDERED: SODIUM CHLORIDE 0.9% 100 ML IV ONE (14:37)
[2020-07-31] MEDS ORDERED: CEFEPIME HCL 2 GM VIAL ONE (14:37)
[2020-07-31 17:40] VITALS: BP 126/74
[2020-07-31 20:29] VITALS: BP 123/72
[2020-07-31] MEDS: OSELTAMIVIR PHOSPHATE 75 MG CAP PO SCH (21:05)
[2020-07-31] MEDS: ENOXAPARIN SODIUM 100 MG/1 ML SQ SCH (21:07)
[2020-07-31] MEDS: HYDROMORPHONE HCL 2 MG TAB PO PRN (21:10)
[2020-07-31 23:28] VITALS: BP 123/62
[2020-07-31] MEDS ORDERED: ZOLPIDEM TARTRATE 5 MG TAB ONE (23:53)
[2020-07-31] MEDS: DEXAMETHASONE SOD PHOSPHATE 4 MG/ML 1ML VIAL IVP SCH ×2 (23:55)
[2020-08-01] MEDS: CEFEPIME HCL 2 GM VIAL IVP SCH ×2 (01:16→13:30)
[2020-08-01] MEDS: HYDROMORPHONE HCL 2 MG TAB PO PRN ×3 (01:17→09:33)
[2020-08-01] MEDS ORDERED: DOXYCYCLINE 100MG+NS 250ML 250 ML IV ONE (03:00)
[2020-08-01] MEDS: DOXYCYCLINE 100MG+NS 250ML 250 ML IV SCH (03:07)
[2020-08-01 04:10] VITALS: BP 110/73
[2020-08-01 04:19] LABS: BASOPHILS % (AUTO) 0.2 % (0.0-5.0); EOSINOPHILS % (AUTO) 0.6 % (0.0-8.0); HEMATOCRIT 22.9 % (42-54); LYMPHOCYTES % (AUTO) 15.6 % (21.0-51.0); MEAN CORPUSCULAR HEMOGLOBIN 31.5 pg (27.0-33.0); MEAN CORPUSCULAR HGB CONC 33.2 g/dL (32.0-36.0); MONOCYTES % (AUTO) 1.9 % (3.0-13.0); NEUTROPHILS % (AUTO) 78.3 % (40.0-77.0); NUCLEATED RED BLOOD CELLS 0.4 % (0.0-0.19); PLATELET COUNT (AUTO) 94 K/uL (130-400); RED BLOOD CELL COUNT(AUTO) 2.41 MIL/uL (4.50-6.20); RED CELL DISTRIBUTION WIDTH 19.9 % (11.0-15.5); WHITE BLOOD COUNT (AUTO) 9.5 K/uL (4.8-10.8)
[2020-08-01 04:30] LABS: ABG BASE EXCESS 5.1 mmol/L (-2.0-3.0); ABG HCO3 29.3 mmol/L (21.0-28.0); ABG OXYGEN SATURATION 87.6 % (95.0-99.0); ABG PCO2 42 mmHg (35-48)
[2020-08-01 04:57] LABS: ALBUMIN 1.1 g/dL (3.5-5.0); BILIRUBIN,TOTAL 0.7 mg/dL (0.2-1.0); CREATININE 0.9 mg/dL (0.5-1.5); CRP QUANTITATIVE 127.7 mg/L (0.00-9.0); MAGNESIUM 1.9 mg/dL (1.80-2.40); PHOSPHORUS 2.6 mg/dL (2.5-4.9); POTASSIUM 3.7 mmol/L (3.5-5.1); THYROID STIMULATING HORMONE 2.03 uIU/mL (0.36-3.74); TOTAL PROTEIN, SERUM 6.3 g/dL (6.0-8.3)
[2020-08-01] MEDS: ASCORBIC ACID 500 MG TAB PO SCH (09:25)
[2020-08-01] MEDS: ZINC SULFATE 220 CAPSULE PO SCH (09:25)
[2020-08-01] MEDS: OSELTAMIVIR PHOSPHATE 75 MG CAP PO SCH ×2 (09:25→22:00)
[2020-08-01] MEDS: FAMOTIDINE 20MG TAB 20 MG TAB PO SCH ×2 (09:25→22:00)
[2020-08-01] MEDS: ENOXAPARIN SODIUM 100 MG/1 ML SQ SCH ×2 (09:26→22:06)
[2020-08-01] MEDS: VANCOMYCIN 1.5 GM in SODIUM CHLORIDE 0.9% 250 ML IV SCH ×2 (09:32→22:02)
[2020-08-01 10:30] VITALS: BP_SYST 121; BP_SYST 148; BP_DIAS 75; BP_DIAS 88
[2020-08-01 15:44] VITALS: BP 122/65
[2020-08-01 19:54] VITALS: BP 130/72
[2020-08-01] MEDS: TAMSULOSIN HCL 0.4 MG CAP.ER.24H PO SCH (22:00)
[2020-08-01] MEDS: ZOLPIDEM TARTRATE 5 MG TAB PO PRN (22:18)
[2020-08-01 23:25] LABS: BASOPHILS % (AUTO) 0.1 % (0.0-5.0); EOSINOPHILS % (AUTO) 1.2 % (0.0-8.0); HEMATOCRIT 22.7 % (42-54); MEAN CORPUSCULAR HEMOGLOBIN 31.9 pg (27.0-33.0); MEAN CORPUSCULAR VOLUME 96.6 fL (79-99); NUCLEATED RED BLOOD CELLS 0.7 % (0.0-0.19); PLATELET COUNT (AUTO) 103 K/uL (130-400); RED BLOOD CELL COUNT(AUTO) 2.35 MIL/uL (4.50-6.20); RED CELL DISTRIBUTION WIDTH 20.1 % (11.0-15.5); WHITE BLOOD COUNT (AUTO) 14.5 K/uL (4.8-10.8)
[2020-08-01 23:31] VITALS: BP 122/61
[2020-08-02] MEDS: CEFEPIME HCL 2 GM VIAL IVP SCH ×2 (01:33→12:27)
[2020-08-02 03:42] VITALS: BP 124/68
[2020-08-02 06:00] LABS: BASOPHILS % (AUTO) 0.1 % (0.0-5.0); EOSINOPHILS % (AUTO) 0.9 % (0.0-8.0); HEMATOCRIT 22.9 % (42-54); LYMPHOCYTES % (AUTO) 18.3 % (21.0-51.0); MEAN CORPUSCULAR HEMOGLOBIN 32.1 pg (27.0-33.0); MEAN CORPUSCULAR HGB CONC 33.2 g/dL (32.0-36.0); MEAN CORPUSCULAR VOLUME 96.6 fL (79-99); MONOCYTES % (AUTO) 3.9 % (3.0-13.0); NEUTROPHILS % (AUTO) 74.4 % (40.0-77.0); NUCLEATED RED BLOOD CELLS 0.4 % (0.0-0.19); PLATELET COUNT (AUTO) 92 K/uL (130-400); RED BLOOD CELL COUNT(AUTO) 2.37 MIL/uL (4.50-6.20); RED CELL DISTRIBUTION WIDTH 20.2 % (11.0-15.5); WHITE BLOOD COUNT (AUTO) 15.1 K/uL (4.8-10.8)
[2020-08-02 06:20] LABS: ALBUMIN 1.1 g/dL (3.5-5.0); BILIRUBIN,TOTAL 0.5 mg/dL (0.2-1.0); TOTAL PROTEIN, SERUM 6.2 g/dL (6.0-8.3)
[2020-08-02 08:23] VITALS: BP 111/57
[2020-08-02] MEDS: ENOXAPARIN SODIUM 100 MG/1 ML SQ SCH ×2 (09:00→21:00)
[2020-08-02] MEDS: VANCOMYCIN 1.5 GM in SODIUM CHLORIDE 0.9% 250 ML IV SCH (09:00)
[2020-08-02] MEDS: OSELTAMIVIR PHOSPHATE 75 MG CAP PO SCH ×2 (10:14→20:41)
[2020-08-02] MEDS: LAMOTRIGINE 100 MG TABLET PO SCH (10:14)
[2020-08-02] MEDS: ZINC SULFATE 220 CAPSULE PO SCH (10:14)
[2020-08-02] MEDS: ASCORBIC ACID 500 MG TAB PO SCH (10:14)
[2020-08-02] MEDS: MONTELUKAST SODIUM 10 MG TAB PO SCH (10:16)
[2020-08-02] MEDS: FAMOTIDINE 20MG TAB 20 MG TAB PO SCH ×2 (10:16→20:41)
[2020-08-02] MEDS ORDERED: HYDROMORPHONE HCL 2 MG/ML VIAL ONE (10:31)
[2020-08-02] MEDS: HYDROMORPHONE HCL 2 MG TAB PO PRN ×4 (10:43→18:37)
[2020-08-02] MEDS ORDERED: POTASSIUM CHLORIDE 10% ELIXIR 20 MEQ/15 ML UDCUP PO PRN (11:45)
[2020-08-02] MEDS ORDERED: LIDOCAINE HCL-MPF 1% 2ML VIAL IV PRN (11:45)
[2020-08-02] MEDS ORDERED: POTASSIUM CHLORIDE 20MEQ/100ML 100 ML IV PRN (11:45)
[2020-08-02 11:49] VITALS: BP 133/69
[2020-08-02] MEDS: POTASSIUM CHLORIDE 20 MEQ ERTAB PO PRN ×3 (12:33→20:49)
[2020-08-02 16:19] VITALS: BP 119/62
[2020-08-02] MEDS: TAMSULOSIN HCL 0.4 MG CAP.ER.24H PO SCH (20:41)
[2020-08-02 20:57] VITALS: BP 116/65
[2020-08-02] MEDS: ZOLPIDEM TARTRATE 5 MG TAB PO PRN (21:39)
[2020-08-03] VITALS: BP 133/70
[2020-08-03] MEDS: CEFEPIME HCL 2 GM VIAL IVP SCH ×2 (01:48→14:14)
[2020-08-03] MEDS: HYDROMORPHONE HCL 2 MG TAB PO PRN ×5 (01:52→22:48)
[2020-08-03] MEDS: POTASSIUM CHLORIDE 20 MEQ ERTAB PO PRN (01:52)
[2020-08-03 03:38] VITALS: BP 102/69
[2020-08-03 05:16] LABS: BASOPHILS % (AUTO) 0.2 % (0.0-5.0); EOSINOPHILS % (AUTO) 0.7 % (0.0-8.0); HEMATOCRIT 23.7 % (42-54); LYMPHOCYTES % (AUTO) 9.4 % (21.0-51.0); MEAN CORPUSCULAR HEMOGLOBIN 31.8 pg (27.0-33.0); MEAN CORPUSCULAR HGB CONC 32.9 g/dL (32.0-36.0); MEAN CORPUSCULAR VOLUME 96.7 fL (79-99); MONOCYTES % (AUTO) 3.8 % (3.0-13.0); NEUTROPHILS % (AUTO) 83.1 % (40.0-77.0); NUCLEATED RED BLOOD CELLS 0.4 % (0.0-0.19); PLATELET COUNT (AUTO) 84 K/uL (130-400); RED BLOOD CELL COUNT(AUTO) 2.45 MIL/uL (4.50-6.20); RED CELL DISTRIBUTION WIDTH 20.6 % (11.0-15.5); WHITE BLOOD COUNT (AUTO) 15.3 K/uL (4.8-10.8)
[2020-08-03 05:36] LABS: CREATININE 0.8 mg/dL (0.5-1.5); POTASSIUM 3.9 mmol/L (3.5-5.1)
[2020-08-03] MEDS: ZINC SULFATE 220 CAPSULE PO SCH (09:48)
[2020-08-03] MEDS: FAMOTIDINE 20MG TAB 20 MG TAB PO SCH ×2 (09:48→20:25)
[2020-08-03] MEDS: OSELTAMIVIR PHOSPHATE 75 MG CAP PO SCH ×2 (09:48→20:25)
[2020-08-03] MEDS: LAMOTRIGINE 100 MG TABLET PO SCH (09:49)
[2020-08-03] MEDS: MONTELUKAST SODIUM 10 MG TAB PO SCH (09:49)
[2020-08-03] MEDS: ASCORBIC ACID 500 MG TAB PO SCH (09:49)
[2020-08-03] MEDS: ENOXAPARIN SODIUM 100 MG/1 ML SQ SCH ×2 (09:50→20:25)
[2020-08-03 09:52] VITALS: BP 122/75
[2020-08-03 13:20] LABS: ABG BASE EXCESS 5.3 mmol/L (-2.0-3.0); ABG HCO3 30.8 mmol/L (21.0-28.0); ABG OXYGEN SATURATION 96.4 % (95.0-99.0); ABG PCO2 48 mmHg (35-48)
[2020-08-03] MEDS: HONEY 1 APPL/ML TUBE TP SCH (17:36)
[2020-08-03 18:04] VITALS: BP 126/80
[2020-08-03 19:30] VITALS: BP 132/72
[2020-08-03] MEDS: TAMSULOSIN HCL 0.4 MG CAP.ER.24H PO SCH (20:25)
[2020-08-03] MEDS: ZOLPIDEM TARTRATE 5 MG TAB PO PRN (22:55)
[2020-08-03] MEDS ORDERED: VANCOMYCIN 1GM+NS 250ML 250 ML IV SCH (23:45)
[2020-08-03] MEDS ORDERED: VANCOMYCIN PROTOCOL PER PHARMACY IV SCH (23:45)
[2020-08-04] VITALS (17 sets, daily range): BP systolic 99–164; BP diastolic 42–100
[2020-08-04] MEDS ORDERED: IPRATROPIUM/ALBUTEROL SULFATE 3 ML SOLUTION IH PRN
[2020-08-04] MEDS ORDERED: VANCOMYCIN 2 GM in SODIUM CHLORIDE 0.9% 500ML 500 ML IV SCH (01:00)
[2020-08-04] MEDS ORDERED: CEFEPIME HCL 2 GM VIAL ONE (02:45)
[2020-08-04] MEDS ORDERED: VANCOMYCIN 1GM+NS 250ML 250 ML IV ONE ×2 (03:08→14:34)
[2020-08-04] MEDS: MEROPENEM 1 GM VIAL IVP SCH ×3 (03:14→16:20)
[2020-08-04] MEDS ORDERED: MORPHINE SULFATE 2 MG/ML 1ML SYG IVP ONE (05:30)
[2020-08-04] MEDS ORDERED: MORPHINE SULFATE 2 MG/ML 1ML SYG ONE (05:31)
[2020-08-04 05:44] LABS: ABG HCO3 29.8 mmol/L (21.0-28.0); ABG OXYGEN SATURATION 99.3 % (95.0-99.0); ABG PCO2 44 mmHg (35-48)
[2020-08-04] MEDS: METRONIDAZOLE 500MG/100ML BAG 100 ML IVPB SCH ×3 (05:48→21:59)
[2020-08-04 06:10] LABS: BASOPHILS % (AUTO) 0.2 % (0.0-5.0); EOSINOPHILS % (AUTO) 0.7 % (0.0-8.0); HEMATOCRIT 24.5 % (42-54); LYMPHOCYTES % (AUTO) 13.6 % (21.0-51.0); MEAN CORPUSCULAR HEMOGLOBIN 31.9 pg (27.0-33.0); MEAN CORPUSCULAR HGB CONC 33.1 g/dL (32.0-36.0); MEAN CORPUSCULAR VOLUME 96.5 fL (79-99); NEUTROPHILS % (AUTO) 79.9 % (40.0-77.0); NUCLEATED RED BLOOD CELLS 0.4 % (0.0-0.19); PLATELET COUNT (AUTO) 83 K/uL (130-400); RED BLOOD CELL COUNT(AUTO) 2.54 MIL/uL (4.50-6.20); RED CELL DISTRIBUTION WIDTH 21.1 % (11.0-15.5); WHITE BLOOD COUNT (AUTO) 11.8 K/uL (4.8-10.8)
[2020-08-04 06:21] LABS: ALBUMIN 1.1 g/dL (3.5-5.0); BILIRUBIN,TOTAL 0.4 mg/dL (0.2-1.0); CREATININE 0.8 mg/dL (0.5-1.5); POTASSIUM 3.4 mmol/L (3.5-5.1); TOTAL PROTEIN, SERUM 6.7 g/dL (6.0-8.3)
[2020-08-04] MEDS: LAMOTRIGINE 100 MG TABLET PO SCH (09:08)
[2020-08-04] MEDS: FAMOTIDINE 20MG TAB 20 MG TAB PO SCH ×2 (09:08→20:29)
[2020-08-04] MEDS: MONTELUKAST SODIUM 10 MG TAB PO SCH (09:08)
[2020-08-04] MEDS: OSELTAMIVIR PHOSPHATE 75 MG CAP PO SCH ×2 (09:08→20:29)
[2020-08-04] MEDS: ZINC SULFATE 220 CAPSULE PO SCH (09:09)
[2020-08-04] MEDS: ENOXAPARIN SODIUM 100 MG/1 ML SQ SCH ×2 (09:09→20:30)
[2020-08-04] MEDS: ASCORBIC ACID 500 MG TAB PO SCH (09:09)
[2020-08-04] MEDS: HONEY 1 APPL/ML TUBE TP SCH (09:09)
[2020-08-04] MEDS: METHYLPREDNISOLONE SOD SUCC 40MG/ML 1ML IVP SCH ×2 (10:19→17:33)
[2020-08-04] MEDS ORDERED: COMPOUND IV REFRIGERATED 1 EACH IVSOLN MISC PRN (11:15)
[2020-08-04] MEDS ORDERED: LACTATED RINGERS 1000ML 1,000 ML IV ONE (14:16)
[2020-08-04] MEDS: VANCOMYCIN 1.25 GM in SODIUM CHLORIDE 0.9% 250 ML IV SCH ×2 (14:48→20:29)
[2020-08-04] MEDS: LACTATED RINGERS 1000ML 1,000 ML IV SCH (14:55)
[2020-08-04] MEDS ORDERED: NICARDIPINE HCL 50 MG in SODIUM CHLORIDE 0.9% 230 ML IV SCH (15:00)
[2020-08-04] MEDS: DILTIAZEM HCL 125 MG/25 ML 125 MG in SODIUM CHLORIDE 0.9% 100 ML IV SCH (17:32)
[2020-08-04] MEDS: IPRATROPIUM 0.5 MG/2.5 ML INH IH SCH (18:00)
[2020-08-04] MEDS: HYDROMORPHONE HCL 0.5 MG/0.5 ML ML IVP PRN ×2 (18:03→21:59)
[2020-08-04] MEDS: TAMSULOSIN HCL 0.4 MG CAP.ER.24H PO SCH (20:29)
[2020-08-05] VITALS (17 sets, daily range): BP systolic 64–143; BP diastolic 36–102
[2020-08-05] MEDS: MEROPENEM 1 GM VIAL IVP SCH ×3 (00:08→15:45)
[2020-08-05] MEDS: IPRATROPIUM 0.5 MG/2.5 ML INH IH SCH ×3 (00:41→11:26)
[2020-08-05] MEDS: METHYLPREDNISOLONE SOD SUCC 40MG/ML 1ML IVP SCH ×2 (02:41→08:59)
[2020-08-05] MEDS: LACTATED RINGERS 1000ML 1,000 ML IV SCH ×2 (02:41→11:53)
[2020-08-05] MEDS: HYDROMORPHONE HCL 0.5 MG/0.5 ML ML IVP PRN ×3 (02:42→11:23)
[2020-08-05 03:39] LABS: HEMATOCRIT 24.2 % (42-54); MEAN CORPUSCULAR HEMOGLOBIN 31.9 pg (27.0-33.0); MEAN CORPUSCULAR HGB CONC 33.1 g/dL (32.0-36.0); MEAN CORPUSCULAR VOLUME 96.4 fL (79-99); NEUTROPHILS % (AUTO) 75.7 % (40.0-77.0); NUCLEATED RED BLOOD CELLS 0.4 % (0.0-0.19); PLATELET COUNT (AUTO) 73 K/uL (130-400); RED BLOOD CELL COUNT(AUTO) 2.51 MIL/uL (4.50-6.20); RED CELL DISTRIBUTION WIDTH 20.7 % (11.0-15.5); WHITE BLOOD COUNT (AUTO) 6.7 K/uL (4.8-10.8)
[2020-08-05 03:51] LABS: B-TYPE NATRIURETIC PEPTIDE 279 pg/mL (0-100)
[2020-08-05 03:54] LABS: CREATININE 0.7 mg/dL (0.5-1.5); POTASSIUM 3.3 mmol/L (3.5-5.1)
[2020-08-05 04:44] LABS: ABG BASE EXCESS 4.7 mmol/L (-2.0-3.0); ABG HCO3 30.2 mmol/L (21.0-28.0); ABG OXYGEN SATURATION 96.6 % (95.0-99.0); ABG PCO2 48 mmHg (35-48)
[2020-08-05] MEDS: METRONIDAZOLE 500MG/100ML BAG 100 ML IVPB SCH ×2 (05:30→15:46)
[2020-08-05] MEDS: POTASSIUM CHLORIDE 20 MEQ ERTAB PO PRN (05:30)
[2020-08-05] MEDS: DILTIAZEM HCL 125 MG/25 ML 125 MG in SODIUM CHLORIDE 0.9% 100 ML IV SCH (07:20)
[2020-08-05] MEDS: VANCOMYCIN 1.25 GM in SODIUM CHLORIDE 0.9% 250 ML IV SCH (08:58)
[2020-08-05] MEDS: ENOXAPARIN SODIUM 100 MG/1 ML SQ SCH (09:00)
[2020-08-05] MEDS: ZINC SULFATE 220 CAPSULE PO SCH (09:00)
[2020-08-05] MEDS: ASCORBIC ACID 500 MG TAB PO SCH (09:00)
[2020-08-05] MEDS: LAMOTRIGINE 100 MG TABLET PO SCH (09:00)
[2020-08-05] MEDS: OSELTAMIVIR PHOSPHATE 75 MG CAP PO SCH (09:00)
[2020-08-05] MEDS: FAMOTIDINE 20MG TAB 20 MG TAB PO SCH (09:00)
[2020-08-05] MEDS ORDERED: PHARMACY COMMUNICATION MISC SCH ×3 (11:45→17:00)
[2020-08-05] MEDS ORDERED: LORAZEPAM 2 MG/ML 1 ML VIAL IVP PRN ×2 (12:15→13:00)
[2020-08-05] MEDS ORDERED: HYDROMORPHONE HCL 2 MG/ML VIAL IVP PRN ×3 (12:15→16:15)
[2020-08-05] MEDS ORDERED: LORAZEPAM 2 MG/ML 1 ML VIAL ONE (12:30)
[2020-08-05] MEDS: HONEY 1 APPL/ML TUBE TP SCH (14:29)
[2020-08-05] MEDS ORDERED: HALOPERIDOL LACTATE 5 MG/ML VIAL IV PRN (16:15)
[2020-08-05] MEDS ORDERED: LORAZEPAM 2 MG/ML 1 ML VIAL IVP ONE (16:45)
[2020-08-06] MEDS ORDERED: ARIMIDEX PO SCH (09:00)
== END 2020-08-05 17:50 | disposition expired | DRG 175 ==
LOC: EDH 19:56 → EDHIP 23:24 → 4BH 07-31 17:40 → 2CH 08-04 10:58
PROVIDERS: ADMIT Family Medicine; ATTEND Family Medicine
PROC: 5A09457 Assistance with Respiratory Ventilation, 24-96 Consecutive Hours, Continuous Positive Airway Pressure (ICD-10-PCS; principal; 2020-08-03)
DX: I26.99 Other pulmonary embolism without acute cor pulmonale (principal); J96.01 Acute respiratory failure with hypoxia; J18.9 Pneumonia, unspecified organism; E43 Unspecified severe protein-calorie malnutrition; J96.02 Acute respiratory failure with hypercapnia; S22.31XA Fracture of one rib, right side, initial encounter for closed fracture; D84.821 Immunodeficiency due to drugs; E87.3 Alkalosis; F11.20 Opioid dependence, uncomplicated; I42.9 Cardiomyopathy, unspecified; R04.2 Hemoptysis; I82.412 Acute embolism and thrombosis of left femoral vein; I82.432 Acute embolism and thrombosis of left popliteal vein; J93.9 Pneumothorax, unspecified; Z66 Do not resuscitate; G47.33 Obstructive sleep apnea (adult) (pediatric); I48.0 Paroxysmal atrial fibrillation; C50.929 Malignant neoplasm of unspecified site of unspecified male breast; E03.9 Hypothyroidism, unspecified; E66.01 Morbid (severe) obesity due to excess calories; E78.5 Hyperlipidemia, unspecified; F31.9 Bipolar disorder, unspecified; G89.4 Chronic pain syndrome; I10 Essential (primary) hypertension; L89.152 Pressure ulcer of sacral region, stage 2; L89.312 Pressure ulcer of right buttock, stage 2; T45.1X5A Adverse effect of antineoplastic and immunosuppressive drugs, initial encounter; Z20.828 Contact with and (suspected) exposure to other viral communicable diseases; Y95 Nosocomial condition; Z96.659 Presence of unspecified artificial knee joint; M54.9 Dorsalgia, unspecified; J98.2 Interstitial emphysema; R53.81 Other malaise; X58.XXXA Exposure to other specified factors, initial encounter; B96.4 Proteus (mirabilis) (morganii) as the cause of diseases classified elsewhere; Z80.0 Family history of malignant neoplasm of digestive organs; Z80.3 Family history of malignant neoplasm of breast; Z82.3 Family history of stroke; Z82.49 Family history of ischemic heart disease and other diseases of the circulatory system; Z83.3 Family history of diabetes mellitus; Z90.11 Acquired absence of right breast and nipple; Z90.49 Acquired absence of other specified parts of digestive tract; Z98.84 Bariatric surgery status; Z68.33 Body mass index [BMI] 33.0-33.9, adult; Y93.89 Activity, other specified; Y92.89 Other specified places as the place of occurrence of the external cause; Y99.8 Other external cause status
CPT/HCPCS: 36415; 36600; 70450; 71045; 71250; 71275; 80048; 80053; 80202; 81001; 82550; 82728; 82803; 82948; 83605; 83615; 83690; 83735; 83880; 84100; 84145; 84443; 84484; 85025; 85378; 85610; 85730; 86140; 86900; 86901; 87040; 87070; 87076; 87077; 87088; 87186; 87426; 87804; 93005; 93970; 94640; 94660; 94664; 94667; 94668; 99291; G0378; J0456; J0692; J0696; J1100; J1170; J1650; J2060; J2185; J2405; J2920; J3370; J3411; J3480; J3490; J7040; J7050; J7120; Q9967; U0003